=== PATIENT | female | born 1980 | race African-American/Black ===

== ENCOUNTER 2018-01-16 12:35 | Outpatient (CLI) | payer MEDICARE, MEDICAID ==
--- NOTE | 2018-01-16 14:40 | CT ---
CT ABDOMEN AND PELVIS WITH IV CONTRAST: Multiple axial tomograms are obtained through the abdomen and pelvis with IV enhancement. INDICATION: Weight loss. Epigastric pain with vomiting and diarrhea. COMPARISON: Correlation is made to a CT angio chest of 07/03/[address] Abdomen and pelvis 12/26/2009. FINDINGS: Lung bases clear. Liver, spleen, and pancreas appear unremarkable. Stomach and duodenum unremarkable. Adrenal glands normal. Kidneys unremarkable. Small bowel loops appear normal. Appendix is normal. Colon unremarkable. Images through the pelvis reveal a follicular cyst in the left ovary measuring up to 2.2 cm. Uterus unremarkable. Urinary bladder unremarkable. No adenopathy. Aorta unremarkable. IMPRESSION: No evidence of acute process. POS: [facility]
[2018-01-16] MEDS ORDERED: Iopamidol 370 76% 100 ML VIAL ONE (16:18)
== END 2018-01-16 12:36 | disposition home or self-care (01) ==
LOC: CT 12:35
PROVIDERS: ATTEND Physician Assistant Medical
DX: R63.4 Abnormal weight loss (principal); K21.9 Gastro-esophageal reflux disease without esophagitis; R10.13 Epigastric pain; K44.9 Diaphragmatic hernia without obstruction or gangrene; R13.10 Dysphagia, unspecified; R11.2 Nausea with vomiting, unspecified; R19.4 Change in bowel habit
CPT/HCPCS: 74177

== ENCOUNTER 2018-04-10 07:23 | Outpatient (CLI) | payer MEDICARE, MEDICAID ==
--- NOTE | 2018-04-10 09:37 | MRI ---
MRI LUMBAR SPINE WITHOUT CONTRAST: Date: 04/10/18 HISTORY: Lumbar radiculopathy. Low back pain with radiation down both lower extremities. There is associated n umbness and tingling x2 years. Progressive worsening. FINDINGS: Appropriate T1 marrow signal intensity of the lumbar vertebra. Lumbar spine vertebral body height is maintained. There is no fracture. No significant STIR hyperintensity to suggest vertebral body edema or ligamentous injury. Visualized solid organs have appropriate signal intensity. Symmetric signal intensity of the psoas mu scles. Conus medullaris terminates at the inferior aspect of L1. There appear to be Tarlov cysts at the left and right aspect of S2. There is some slight displacement of the exiting S2 nerve roots bilaterally. T12-L1: No significant central canal stenosis or foraminal narrowing. L1-L2: No significant central canal stenosis or foraminal narrowing. L2-L3: No significant central canal stenosis or foraminal narrowing. L3-L4: No significant central canal stenosis or foraminal narrowing. L4-L5: No significant central canal stenosis or foraminal narrowing. Mild bilateral facet hypertroph y. L5-S1: No significant central canal stenosis. Neural foramina are patent. IMPRESSION: 1. No significant central canal stenosis or foraminal narrowing. 2. Bilateral Tarlov cysts at S2. POS: [facility]
== END 2018-04-10 07:24 | disposition home or self-care (01) ==
LOC: BICMRI 07:23
PROVIDERS: ATTEND Anesthesiology
DX: M54.16 Radiculopathy, lumbar region (principal); M53.3 Sacrococcygeal disorders, not elsewhere classified
CPT/HCPCS: 72148

== ENCOUNTER 2019-03-02 10:02 | Outpatient (CLI) | payer MEDICARE, MEDICAID ==
--- NOTE | 2019-03-02 10:36 | RAD ---
EXAM: Chest 2 views: HISTORY: Dyspnea COMPARISON: 01/18/2019 FINDINGS: There is a normal-sized cardiomediastinal silhouette. Atelectasis is seen in the mid right lung. Th ere is no evidence of consolidation, mass, or pleural effusion. The bones are unremarkable. IMPRESSION: No evidence of acute cardiopulmonary disease
== END 2019-03-02 10:03 | disposition home or self-care (01) ==
LOC: RAD 10:02
PROVIDERS: ATTEND Internal Medicine
DX: R06.00 Dyspnea, unspecified (principal)
CPT/HCPCS: 71046

== ENCOUNTER 2019-12-13 10:59 | Inpatient (IN) | payer MEDICARE, MEDICAID, OTHER ==
[~2019-12-13 10:59] MED LIST: Iopamidol-370 76% 500 ML 1 ML ONE
[2019-12-13] MEDS ORDERED: Fentanyl 100 MCG/2 ML VIAL ONE ×2 (11:28→15:22)
[2019-12-13] MEDS ORDERED: Ondansetron PF 4 MG/2 ML Vial ONE (11:28)
[2019-12-13 11:58] LABS: #Basophils 0.2 thou/uL (0.0-0.2); #Eosinphils 0.8 thou/uL (0.0-0.7); #Lymphocytes 5.3 thou/uL (1.20-3.40); #Monocytes 0.8 thou/uL (0.11-0.59); #Neutrophils 6.3 thou/uL (1.40-6.50); %Basophils 1.2 % (0.0-1.0); %Eosinophils 5.7 % (0.0-10.0); %Lymphocytes 39.7 % (21.0-51.0); %Monocytes 6.1 % (0.0-10.0); %Neutrophils 47.4 % (42.0-75.0); Hemoglobin 14.6 g/dL (12.0-16.0); Mean Corpuscular Hemoglobin 29.3 pg (27.0-31.0); Mean Corpuscular Volume 88.7 fL (78.0-98.0); Mean Platelet Volume 6.9 fL (7.4-10.4); Platelet Count 292 thou/uL (130-400); RBC Distribution Width 12.4 % (11.5-14.5); Red Blood Cell (RBC) Count 4.99 mill/uL (4.20-5.40); White Blood Cell (WBC) Count 13.2 thou/uL (4.8-10.8)
[2019-12-13 12:04] LABS: Prothrombin Time 13.1 sec (12.0-14.7)
[2019-12-13 12:05] LABS: BHCG - Serum Negative (NEGATIVE); Pregs Control Background? CLEAR/WHITE (CLR/WHITE); Pregs Control Bar Appear? YES (CONTROL BAR)
[2019-12-13 12:05] LABS: PTT 31.5 sec (22.9-36.1)
[2019-12-13 12:25] LABS: ALT (SGPT) 25 U/L (8-55); AST (SGOT) 25 U/L (5-34); Albumin 3.9 g/dL (3.5-5.0); Alkaline Phosphatase 76 U/L (40-110); Anion Gap 14 mmol/L (10-20); BUN (Urea Nitrogen) 9 mg/dL (7.0-18.7); Bilirubin, Total 0.4 mg/dL (0.2-1.2); Calc. Creatinine Clearance 0 mL/min (70-130); Calcium 8.7 mg/dL (7.8-10.44); Carbon Dioxide 25 mmol/L (22-29); Chloride 101 mmol/L (98-107); Estimated GFR-MDRD Greater than 90; Globulin 3.5 g/dL (2.4-3.5); Glucose 244 mg/dL (70-105); Potassium 4.8 mmol/L (3.5-5.1); Protein, Total 7.4 g/dL (6.0-8.3); Sodium 135 mmol/L (136-145)
--- NOTE | 2019-12-13 13:03 | ULT ---
BILATERAL LOWER EXTREMITY VENOUS DUPLEX EXAM: Date: 12/13/2019 HISTORY: Bilateral leg pain and edema. History of deep venous thrombosis on right in 2017. FINDINGS: Real-time color Doppler of right and left lower extremity was performed from groin to calf. This incl udes evaluation of the common femoral, superficial and profunda femoral, saphenous, popliteal, and po sterior tibial veins. On the right side, there is occlusive thrombus in the mid to distal superficial femoral vein in the m id to distal thigh region. There is nonocclusive thrombus within the left popliteal vein. IMPRESSION: Bilateral lower extremity deep venous thrombosis. POS: [facility]
--- NOTE | 2019-12-13 13:12 | CT ---
CT PULMONARY ANGIOGRAM WITH IV CONTRAST AND 3D POSTPROCESSING: Date: 12/13/2019 HISTORY: Chest pain. Left lower leg swelling and pain. COMPARISON: 07/03/2016. FINDINGS: Inadequate opacification of the pulmonary arterial vasculature makes this a nondiagnostic exam for th e evaluation of pulmonary embolism. The thoracic aorta is well opacified with normal caliber. No evidence of aneurysm or dissection is se en. No pleural or pericardial effusions are identified. There is continued elevation of the right hem idiaphragm with adjacent atelectatic change. There are mild patchy ground-glass opacities in the lung s bilaterally. No pleural or pericardial effusions are identified. The bony structures are unremarkab le. IMPRESSION: Nondiagnostic exam for pulmonary embolism. Please see above. POS: [facility]
--- NOTE | 2019-12-13 15:45 | PDOC.FPRHP ---
- History of Present Illness Chief Complaint: b/l LE pain, swelling, redness. Cough, CP, SOB History of Present Illness: This is a 39F who presented with b/l redness, swelling, pain of the LE, as well as orthopnea, cough, SOB, CP, all of which started 2-3 days ago. She has a hx of lupus and an arrhythmia, as well as a hx of R LE DVT in 2017 for which she was on Xarelto for 2-3 months. Since then, she has been taking an 81mg ASA every day. A few days ago, both of her legs, from her knees down, become red, swollen, and extremely painful. She called the after-hours clinic number from which she was recommended to go to the ED. B/l LE doppler confirmed b/l DVTs. CTA was obtained but contrast was suboptimal so the results are non-diagnostic for PE. She states her feet felt hot but her b/l legs below the knees are cool to the touch. Her feet are edematous but without pitting edema. Her legs are extremely tender to palpation. It is difficult to farmhand erythema d/t darker skin tone but the pt states her legs are not of their usual color. Her chest is not tender to palpation but her epigastrium is. She states the pain radiates to her back. She has a smoking hx of 1-2 ppd x "several years" but quit smoking 17-18 days ago and is currently using Chantix to help with that. ED Course: Administered fentanyl x2, Zofran, Lovenox 100mg - Allergies/Adverse Reactions Allergies Allergy/AdvReac Type Severity Reaction Status Date / Time hydromorphone HCl Allergy Verified 05/07/19 16:12 [From Dilaudid] latex Allergy Verified 05/07/19 16:12 - Home Medications Medication Instructions Recorded Confirmed Type HYDROcodone Bit/APAP 10/325 [[place]] 1 tab PO Q4HR PRN 10/04/15 07/02/16 History QUEtiapine Fumarate [SEROquel] 600 mg PO HS 10/04/15 07/02/16 History Divalproex Sodium [Depakote ER] 2,000 mg PO HS 10/06/15 07/02/16 History Gabapentin [Neurontin] 600 mg PO QID 10/06/15 07/02/16 History Albuterol Sulfate [Proair HFA] 2 inhaler PO Q4HR PRN 01/18/16 07/02/16 History Aspirin [Adult Low Dose Aspirin EC] 81 mg PO DAILY 01/18/16 07/02/16 History Atorvastatin Calcium 20 mg PO DAILY 01/18/16 07/02/16 History Cyclobenzaprine [Flexeril] 5 mg PO TID 01/18/16 07/02/16 History Diclofenac Epolamine [Flector 1.3% 1 patch TOP DAILY PRN 01/18/16 07/02/16 History Patch] Omeprazole 40 mg PO DAILY 01/18/16 07/02/16 History SUMAtriptan Succinate [Imitrex] 25 mg PO Q2HR PRN 01/18/16 07/02/16 History metFORMIN [Glucophage] 500 mg PO DAILY 01/18/16 07/02/16 History Insulin Detemir 100 UNITS/ML 80 unit SQ QPM 07/02/16 07/02/16 History [Levemir] Insulin Detemir 100 UNITS/ML 80 units SC QA- 07/02/16 07/02/16 History [Levemir] Benzonatate [Tessalon] 100 mg PO Q4H PRN #30 cap 07/03/16 Rx Ibuprofen 600 mg PO Q8HR PRN #21 tablet 07/03/16 Rx Rivaroxaban [Xarelto Starter Pack] 15 mg PO BID 07/03/16 07/03/16 History Rivaroxaban [Xarelto] 20 mg PO DAILY 07/03/16 07/03/16 History - History PMHx: Lupus, hx of L LE DVT, HTN, HLD, IDDM2, arrhythmia, migraines, chronic back pain, RA, fibromyalgia, anx/dep PSHx: hernia repair FHx: significant fhx of CAD Social: No EtOH/drugs. Smoked 1-2ppd x "many years", actively quitting with Chantix x18 days - Review of Systems General: reports: fatigue. denies: fever/chills Eyes: denies: vision changes Respiratory: reports: shortness of breath. denies: cough Cardiovascular: reports: chest pain, palpitation, edema, orthopnea Gastrointestinal: denies: nausea, vomiting, diarrhea Genitourinary: denies: dysuria, polyuria Skin: denies: rashes, itching Musculoskeletal: reports: pain, tenderness, stiffness, swelling Neurological: reports: numbness (in toes b/l). denies: syncope, seizure Psychological: reports: anxiety, depression - Vital signs BP: 140/66 HR: 100 RR: 20 Tmax: 98.1F Pox: 95-98% on RA Wt: 98kg - Physical Exam Constitutional: NAD, awake, alert and oriented, well developed (obese) HEENT: normocephalic and atraumatic, EOMI, grossly normal vision, grossly normal hearing Neck: supple, FROM Chest: no-tender to palpation, no lesions Heart: RRR, normal S1/S2, no murmurs/rubs/gallops, pulses present (1+ b/l radial and dp) Lungs: CTAB (Decreased breath sounds in lower L lung), no respiratory distress, good air movement, no rales/rhonchi, no wheezing Abdomen: soft, bowel sounds present -Abdomen: Tender to palpation in epigastric region Musculoskeletal: normal structure, normal tone, ROM grossly normal Neurological: no focal deficit Skin: no rash/lesions -Skin: B/l legs, below the knees, cold to the touch Psychiatric: normal mood and affect, good judgment and insight, intact recent and remote memory FMR H&P: Results - Labs Result Diagrams: 12/13/19 11:35 12/13/19 11:35 Lab results: WBC 13.2 thou/uL (4.8-10.8) H 12/13/19 11:35 Hgb 14.6 g/dL (12.0-16.0) 12/13/19 11:35 Hct 44.2 % (36.0-47.0) 12/13/19 11:35 MCV 88.7 fL (78.0-98.0) 12/13/19 11:35 Plt Count 292 thou/uL (130-400) 12/13/19 11:35 Neutrophils % 47.4 % (42.0-75.0) 12/13/19 11:35 Sodium 135 mmol/L (136-145) L 12/13/19 11:35 Potassium 4.8 mmol/L (3.5-5.1) 12/13/19 11:35 Chloride 101 mmol/L (98-107) 12/13/19 11:35 Carbon Dioxide 25 mmol/L (22-29) 12/13/19 11:35 BUN 9 mg/dL (7.0-18.7) 12/13/19 11:35 Creatinine 0.81 mg/dL (0.6-1.1) 12/13/19 11:35 Glucose 244 mg/dL (70-105) H 12/13/19 11:35 Calcium 8.7 mg/dL (7.8-10.44) 12/13/19 11:35 Total Bilirubin 0.4 mg/dL (0.2-1.2) 12/13/19 11:35 AST 25 U/L (5-34) 12/13/19 11:35 ALT 25 U/L (8-55) 12/13/19 11:35 Alkaline Phosphatase 76 U/L (40-110) 12/13/19 11:35 B-Natriuretic Peptide 44.0 pg/mL (0-100) 12/13/19 11:35 Serum Total Protein 7.4 g/dL (6.0-8.3) 12/13/19 11:35 Albumin 3.9 g/dL (3.5-5.0) 12/13/19 11:35 FMR H&P: A/P - Plan This is a 39F who presented to the ED for concerns for b/l DVT given her hx of lupus and of prior DVT. B/l LE DVT - Hx of R LE DVT in 2017, s/p Xarelto - Confirmed on LE doppler U/S - Given one dose of Teena in ED - Start Eliquis - Echo ordered Likely PE - CTA with suboptimal contrast therefore non-diagnostic for PE - CP, SOB, orthopnea - Monitor on tele - Not requiring O2, monitor oxygenation status and resp effort - Management same as above Lupus - PMH - Suspected cause of DVTs - MD aware Arrhythmia - Unknown type - Monitor on tele - Continue home meds IDDM2 - ACHS checks - SSI - Hypoglycemia protocol - Restart home insulin HTN - Chronic, POA - MD aware - Continue home meds Chronic conditions - MD aware, continue home meds Migraines Chronic back pain RA Fibromyalgia Diet: CC 1999kc DVT Ppx: Eliquis PCP: CHRISTINE Hewitt Code: Full Dispo: Tele obs, will likely discharge tomorrow FMR H&P: Upper Level - Plan Date/Time: 12/13/19 3421 Ms Mcgowan is a 40yo female with pmh of RA, IDDM, hx of DVTs in 2017 presents with bilateral leg pain, swelling and dyspnea at rest. Reports symptoms started a couple days ago. Today she developed substernal chest pain, worse with pushing on it. Was on Xarelto for 2-3 months and has been taking a baby aspirin. General: NAD CV: RRR, no murmurs. Chest pain reproducible on palpation. Pulm: CTA b/l. In mild distress. Extremities: No edema A/P: Bilateral DVTs and likely PE -US with b/l LE DVTs. CTA with inadequate opacification therefore nondiagnostic. Symptoms consistent with PE. EKG wnl. s/p Therapeutic lovenox in ED, will transition over to DOAC. Not requiring O2. Echo ordered to eval for right heart strain. Morphine PRN for pain. Admit to tele. I, Maryjane Corcoran, have evaluated this patient and agree with findings/plan as outlined by communications marketing intern resident. Pertinent changes/additions are listed here. Addendum - Attending - Attending Attestation Date/Time: 12/13/19 2958 I personally evaluated the patient and discussed the management with Dr. Alejandra Ruiz/Nilo. I agree with the History, Examination, Assessment and Plan documented above with any addition or exceptions noted below. Patient with history of autoimmune disorders as well as history of DVT here with lower extremity swelling, shortness of breath, and chest pain. LE U/S c/w DVT, CTA nondiagnostic for PE. Patient with borderline tachycardia, she does have normal O2 sats. Exam is overall benign except with lower extremity. Patient will be admitted for DVT and suspected PE. Start Lovenox with transition to OAC. TTE will be needed to assess RV function given the symptoms concerning for heart failure. Further mgmt pending clinical course.
[2019-12-13 15:52] LABS: Troponin I Less than 0.010 ng/mL (< 0.028)
[2019-12-13] MEDS ORDERED: Enoxaparin Sodium 100 MG/ML SYRINGE ONE (16:22)
[2019-12-13] MEDS ORDERED: Ondansetron ODT 4 MG TAB PO PRN (18:19)
[2019-12-13] MEDS ORDERED: HumaLOG 300 UNITS/3 ML VIAL SC PRN (18:19)
[2019-12-13] MEDS ORDERED: Ondansetron PF 4 MG/2 ML Vial IVP PRN (18:19)
[2019-12-13] MEDS ORDERED: Dextrose 50% Abboject 50 ML SYRINGE SLOW IVP PRN (18:19)
[2019-12-13] MEDS ORDERED: Calcium Carbonate 500 MG ChewTAB PO PRN (18:19)
[2019-12-13] MEDS ORDERED: Dextrose 5% in Water 1,000 ML IV PRN (18:19)
[2019-12-13 18:36] VITALS: BMI 34.3
[2019-12-13 18:46] LABS: Troponin I Less than 0.010 ng/mL (< 0.028)
[2019-12-13] MEDS: Apixaban 5 MG TAB PO SCH (21:30)
[2019-12-13] MEDS: Fentanyl 100 MCG/2 ML VIAL SLOW IVP SCH (21:31)
[2019-12-13] MEDS ORDERED: Ibuprofen 600 MG TAB PO PRN (22:48)
[2019-12-13] MEDS ORDERED: tiZANidine HCl 4 MG TAB PO PRN (22:57)
[2019-12-13] MEDS ORDERED: Albuterol 200 PUFF (6.7GM INHALER) INH PRN (22:58)
[2019-12-13] MEDS ORDERED: ERENUMAB AOOE 70 MG/ML IM SCH (23:15)
[2019-12-13] MEDS ORDERED: AUTO INJCT IM SCH (23:15)
[2019-12-14] MEDS ORDERED: clonazePAM 1 MG TAB PO SCH (01:15)
[2019-12-14] MEDS ORDERED: OLANZapine 5 MG TAB PO SCH (01:15)
[2019-12-14] MEDS ORDERED: Prazosin HCl 1 MG CAP PO SCH (01:15)
[2019-12-14] MEDS ORDERED: Gabapentin 300 MG CAP PO SCH (01:15)
[2019-12-14] MEDS: Fentanyl 100 MCG/2 ML VIAL SLOW IVP SCH ×6 (01:25→20:57)
[2019-12-14] MEDS: Nicotine 14 MG PATCH TD SCH ×2 (01:28→20:52)
[2019-12-14 05:11] LABS: #Basophils 0.1 thou/uL (0.0-0.2); #Eosinphils 0.7 thou/uL (0.0-0.7); #Lymphocytes 5.1 thou/uL (1.20-3.40); #Monocytes 0.8 thou/uL (0.11-0.59); #Neutrophils 3.9 thou/uL (1.40-6.50); %Eosinophils 6.9 % (0.0-10.0); %Lymphocytes 47.7 % (21.0-51.0); %Monocytes 7.8 % (0.0-10.0); %Neutrophils 36.6 % (42.0-75.0); Hemoglobin 14.2 g/dL (12.0-16.0); Mean Corpuscular HGB CONC 32.1 g/dL (32.0-36.0); Mean Corpuscular Hemoglobin 28.7 pg (27.0-31.0); Mean Corpuscular Volume 89.4 fL (78.0-98.0); Platelet Count 302 thou/uL (130-400); RBC Distribution Width 12.5 % (11.5-14.5); Red Blood Cell (RBC) Count 4.95 mill/uL (4.20-5.40); White Blood Cell (WBC) Count 10.6 thou/uL (4.8-10.8)
[2019-12-14 05:35] LABS: Anion Gap 15 mmol/L (10-20); BUN (Urea Nitrogen) 7 mg/dL (7.0-18.7); Calc. Creatinine Clearance 142 mL/min (70-130); Calcium 8.9 mg/dL (7.8-10.44); Carbon Dioxide 24 mmol/L (22-29); Chloride 103 mmol/L (98-107); Estimated GFR-MDRD Greater than 90; Glucose 169 mg/dL (70-105); Sodium 138 mmol/L (136-145)
--- NOTE | 2019-12-14 07:25 | PDOC.FM ---
- Subjective Subjective: Pt is a 39 yo female here for bilateral DVT's and likely PE. She has continued pleuritic chest pain. Her lower extremities are causing pain. She has not had a syncopal episode. - Objective Vital Signs & Weight: Vital Signs (12 hours) Temp Pulse Resp BP Pulse Ox 12/14/19 04:00 98.2 F 111 H 20 117/57 L 92 L 12/13/19 19:58 98.2 F 94 20 128/59 L 95 Weight Weight 96.479 kg I&O: 12/13/19 12/14/19 12/15/19 06:59 06:59 06:59 Intake Total 750 Output Total 1100 Balance -350 Result Diagrams: 12/14/19 04:36 12/14/19 04:36 EKG Reviewed by me: Yes (NSR) Phys Exam - Physical Examination Constitutional: NAD HEENT: PERRLA, oral pharynx no lesions Neck: no JVD, full ROM Respiratory: no wheezing, clear to auscultation bilateral Cardiovascular: RRR, no significant murmur Gastrointestinal: soft, non-tender 1+ edema, pulses present, positive neda sign Neurological: non-focal, moves all 4 limbs Psychiatric: normal affect Skin: no rash, cap refill <2 seconds Dx/Plan - Plan Plan: This is a 39F who presented to the ED for concerns for b/l DVT given her hx of lupus and of prior DVT. B/l LE DVT - Hx of R LE DVT in 2017, s/p Xarelto - Confirmed on LE doppler U/S - Given one dose of Teena in ED - Start Eliquis; CM consulted for home affordability - Pt will likely need chronic anti-coag - Prior anti-cardiolipin studies negative Likely PE - CTA with suboptimal contrast therefore non-diagnostic for PE - pending echo - walking trial for possible home oxygen Lupus - PMH - Suspected cause of DVTs - MD aware Arrhythmia - Unknown type - Monitor on tele - Continue home meds IDDM2 - ACHS checks - SSI - Hypoglycemia protocol - Restart home insulin HTN - Chronic, POA - MD aware - Continue home meds Chronic conditions - MD aware, continue home meds Migraines Chronic back pain RA Fibromyalgia Diet: CC 2000kcal DVT Ppx: Eliquis PCP: CHRISTINE Hewitt Code: Full Dispo: Tele obs, will likely discharge today depending on walking trial Addendum - Attending - Attending Attestation Date/Time: 12/14/19 3448 I personally evaluated the patient and discussed the management with Dr. Jiang. I agree with the History, Examination, Assessment and Plan documented above with any addition or exceptions noted below.
[2019-12-14] MEDS: clonazePAM 1 MG TAB PO SCH ×2 (08:24→20:51)
[2019-12-14] MEDS: Amlodipine 10 MG TAB PO SCH (08:24)
[2019-12-14] MEDS: Gabapentin 300 MG CAP PO SCH ×3 (08:24→20:50)
[2019-12-14] MEDS: Atorvastatin Calcium 20 MG TAB PO SCH (08:24)
[2019-12-14] MEDS: Aspirin 81 mg Enteric Coated Tablet PO SCH (08:25)
[2019-12-14] MEDS: Venlafaxine HCl XR 150 MG CAP PO SCH (08:25)
[2019-12-14] MEDS: Apixaban 5 MG TAB PO SCH ×2 (08:25→20:51)
[2019-12-14] MEDS ORDERED: Non-Formulary Item 1 EACH (Insulin Detemir 100 Units/Ml [Levemir] 100 UNITS/ML Vial) SQ SCH (09:00)
[2019-12-14] MEDS ORDERED: DICLOFENAC EPOLAMINE TOP SCH (09:00)
[2019-12-14] MEDS ORDERED: VARENICLINE TARTRATE PO SCH (09:00)
[2019-12-14] MEDS ORDERED: Lidocaine 5% Patch TD SCH (09:00)
[2019-12-14] MEDS: SUMAtriptan Succinate 25 MG TAB PO PRN ×2 (11:04→17:16)
[2019-12-14] MEDS: Fluticasone Propionate Nasal Spray 16 gm Bottle FS SCH (11:05)
[2019-12-14] MEDS: Ipratropium Bromide 0.06% Nasal Inhaler 15ml EA NARE SCH ×2 (11:05→20:56)
[2019-12-14 11:08] LABS: SARS-CoV-2 MS2 Positive; SARS-CoV-2 N Gene Negative; SARS-CoV-2 S Gene Negative; SARS-CoV-2 by NAA Not Detected (NotDetected); SARS-CoV-2 orf1ab Negative
[2019-12-14] MEDS: HumaLOG 300 UNITS/3 ML VIAL SC PRN (11:30)
[2019-12-14] MEDS: Prazosin HCl 1 MG CAP PO SCH (20:51)
[2019-12-14] MEDS: OLANZapine 5 MG TAB PO SCH (20:51)
[2019-12-14] MEDS ORDERED: INSULIN GLARGINE SC SCH (21:00)
[2019-12-14] MEDS ORDERED: PRE FILLED SC SCH (21:00)
[2019-12-14] MEDS: Lidocaine Patch Removal 1 EACH TOP SCH (22:12)
[2019-12-15] MEDS: Fentanyl 100 MCG/2 ML VIAL SLOW IVP SCH ×2 (02:40→05:29)
--- NOTE | 2019-12-15 06:32 | PDOC.FM ---
- Subjective Subjective: Pt is doing well today. She has no complaints. Her chest pain is improving. She is ambulating well but desats. She is now on 2 L at rest as well. - Objective Vital Signs & Weight: Vital Signs (12 hours) Temp Pulse Resp BP Pulse Ox 12/15/19 05:24 98.6 F 86 14 117/58 L 94 L 12/15/19 01:11 98.5 F 84 16 104/51 L 96 12/14/19 20:16 97 12/14/19 19:20 97.8 F 87 20 121/56 L 97 Weight Weight 96.479 kg I&O: 12/13/19 12/14/19 12/15/19 06:59 06:59 06:59 Intake Total 750 Output Total 1100 Balance -350 Result Diagrams: 12/15/19 07:00 12/15/19 07:00 Phys Exam - Physical Examination Constitutional: NAD HEENT: PERRLA, moist MMs Respiratory: no wheezing, clear to auscultation bilateral Cardiovascular: RRR, no significant murmur Gastrointestinal: soft, positive bowel sounds Musculoskeletal: pulses present positive homans sign Neurological: non-focal, moves all 4 limbs Psychiatric: normal affect, A&O x 3 Skin: no rash, cap refill <2 seconds Dx/Plan - Plan Plan: This is a 39F who presented to the ED for concerns for b/l DVT given her hx of lupus and of prior DVT. B/l LE DVT - Hx of R LE DVT in 2017, s/p Xarelto - Confirmed on LE doppler U/S - Start Eliquis; CM consulted for home affordability - Pt will likely need chronic anti-coag - Prior anti-cardiolipin studies negative Likely PE - CTA with suboptimal contrast therefore non-diagnostic for PE - pending echo for right heart strain, pressures - pt is requiring 2 L of oxygen at rest and desats with ambulation - pending home oxygen Lupus - PMH - Suspected cause of DVTs - aware - d/c ibuprofen in setting of anticoag Arrhythmia - Unknown type - Monitor on tele - Continue home meds IDDM2 - ACHS checks - SSI - Hypoglycemia protocol - Restart home insulin HTN - Chronic, POA - aware - Continue home meds Chronic conditions - aware, continue home meds Migraines Chronic back pain RA Fibromyalgia Diet: CC 1999[facility] DVT Ppx: Eliquis PCP: CHRISTINE Hewitt Code: Full Dispo: Tele inpt, pending home oxygen and echocardiogram Addendum - Attending - Attending Attestation Date/Time: 12/15/19 9474 I personally evaluated the patient and discussed the management with Dr. Jiang. I agree with the History, Examination, Assessment and Plan documented above with any addition or exceptions noted below.
[2019-12-15 07:19] LABS: #Basophils 0.1 thou/uL (0.0-0.2); #Eosinphils 0.6 thou/uL (0.0-0.7); #Monocytes 0.8 thou/uL (0.11-0.59); %Eosinophils 5.7 % (0.0-10.0); %Lymphocytes 38.3 % (21.0-51.0); %Monocytes 7.5 % (0.0-10.0); %Neutrophils 47.6 % (42.0-75.0); Hemoglobin 14.8 g/dL (12.0-16.0); Mean Corpuscular HGB CONC 33.1 g/dL (32.0-36.0); Mean Corpuscular Hemoglobin 29.6 pg (27.0-31.0); Mean Corpuscular Volume 89.6 fL (78.0-98.0); Mean Platelet Volume 6.7 fL (7.4-10.4); Platelet Count 290 thou/uL (130-400); RBC Distribution Width 12.5 % (11.5-14.5); Red Blood Cell (RBC) Count 4.99 mill/uL (4.20-5.40); White Blood Cell (WBC) Count 10.5 thou/uL (4.8-10.8)
[2019-12-15 07:33] LABS: Anion Gap 10 mmol/L (10-20); BUN (Urea Nitrogen) 11 mg/dL (7.0-18.7); Calc. Creatinine Clearance 142 mL/min (70-130); Calcium 9.4 mg/dL (7.8-10.44); Carbon Dioxide 29 mmol/L (22-29); Chloride 102 mmol/L (98-107); Estimated GFR-MDRD Greater than 90; Glucose 163 mg/dL (70-105); Potassium 4.3 mmol/L (3.5-5.1); Sodium 137 mmol/L (136-145)
[2019-12-15] MEDS: Gabapentin 300 MG CAP PO SCH ×3 (08:11→21:39)
[2019-12-15] MEDS: Aspirin 81 mg Enteric Coated Tablet PO SCH (08:12)
[2019-12-15] MEDS: Venlafaxine HCl XR 150 MG CAP PO SCH (08:12)
[2019-12-15] MEDS: Atorvastatin Calcium 20 MG TAB PO SCH (08:12)
[2019-12-15] MEDS: Amlodipine 10 MG TAB PO SCH (08:12)
[2019-12-15] MEDS: clonazePAM 1 MG TAB PO SCH ×2 (08:12→21:40)
[2019-12-15] MEDS: Lidocaine 5% Patch TD SCH (08:13)
[2019-12-15] MEDS: Apixaban 5 MG TAB PO SCH ×2 (08:13→21:38)
[2019-12-15] MEDS: Ipratropium Bromide 0.06% Nasal Inhaler 15ml EA NARE SCH ×2 (08:13→21:41)
[2019-12-15] MEDS: Fluticasone Propionate Nasal Spray 16 gm Bottle FS SCH (08:14)
[2019-12-15] MEDS: Polyethylene Glycol 3350 17 GM Packet PO PRN (08:18)
[2019-12-15] MEDS: HYDROcodone/Acetaminophen 10/325 mg Tablet PO PRN ×3 (08:18→21:38)
[2019-12-15] MEDS: INSULIN GLARGINE SC SCH ×3 (08:30→21:53)
[2019-12-15] MEDS: PRE FILLED SC SCH ×3 (08:30→21:53)
[2019-12-15] MEDS ORDERED: Insulin Glargine 20 UNITS in Pre-Filled Syringe 1 EACH SC SCH (11:45)
[2019-12-15] MEDS: HumaLOG 300 UNITS/3 ML VIAL SC PRN ×2 (13:04→17:12)
[2019-12-15] MEDS: Senokot S 8.6-50 MG TAB PO PRN (21:37)
[2019-12-15] MEDS: OLANZapine 5 MG TAB PO SCH (21:38)
[2019-12-15] MEDS: Prazosin HCl 1 MG CAP PO SCH (21:40)
[2019-12-15] MEDS: Nicotine 14 MG PATCH TD SCH (21:42)
[2019-12-15] MEDS: Lidocaine Patch Removal 1 EACH TOP SCH (21:42)
[2019-12-16 05:01] LABS: #Basophils 0.1 thou/uL (0.0-0.2); #Eosinphils 0.9 thou/uL (0.0-0.7); #Lymphocytes 4.9 thou/uL (1.20-3.40); #Neutrophils 3.8 thou/uL (1.40-6.50); %Basophils 1.2 % (0.0-1.0); %Lymphocytes 45.9 % (21.0-51.0); %Neutrophils 35.9 % (42.0-75.0); Hemoglobin 14.9 g/dL (12.0-16.0); Mean Corpuscular HGB CONC 33.5 g/dL (32.0-36.0); Mean Corpuscular Hemoglobin 29.9 pg (27.0-31.0); Mean Corpuscular Volume 89.2 fL (78.0-98.0); Mean Platelet Volume 6.9 fL (7.4-10.4); Platelet Count 290 thou/uL (130-400); RBC Distribution Width 12.3 % (11.5-14.5); Red Blood Cell (RBC) Count 4.98 mill/uL (4.20-5.40); White Blood Cell (WBC) Count 10.6 thou/uL (4.8-10.8)
[2019-12-16 05:28] LABS: Anion Gap 12 mmol/L (10-20); BUN (Urea Nitrogen) 13 mg/dL (7.0-18.7); Calc. Creatinine Clearance 144 mL/min (70-130); Calcium 9.3 mg/dL (7.8-10.44); Carbon Dioxide 28 mmol/L (22-29); Chloride 102 mmol/L (98-107); Estimated GFR-MDRD Greater than 90; Glucose 108 mg/dL (70-105); Potassium 4.2 mmol/L (3.5-5.1); Sodium 138 mmol/L (136-145)
[2019-12-16] MEDS: HYDROcodone/Acetaminophen 10/325 mg Tablet PO PRN ×4 (05:41→18:41)
--- NOTE | 2019-12-16 07:51 | PDOC.FM ---
- Subjective Subjective: Pt is doing well today. She has no complaints. Pain is fairly well controlled. She is taking her home norco. Scheduled tylenol as well. She asked about paying for home oxygen since she was denied. Case management says this is a possibility. - Objective Vital Signs & Weight: Vital Signs (12 hours) Temp Pulse Resp BP BP Pulse Ox 12/16/19 05:37 97.8 F 73 18 101/55 L 93 L 12/16/19 00:58 98 F 67 20 117/56 L 99 12/15/19 21:39 97.9 F 84 24 H 128/64 93 L Weight Weight 96.479 kg Result Diagrams: 12/16/19 04:07 12/16/19 04:07 Phys Exam - Physical Examination Constitutional: NAD HEENT: PERRLA, moist MMs Respiratory: no wheezing, clear to auscultation bilateral Cardiovascular: RRR, no significant murmur Gastrointestinal: soft, non-tender Musculoskeletal: no edema, pulses present Dx/Plan - Plan Plan: This is a 39F who presented to the ED for concerns for b/l DVT given her hx of lupus and of prior DVT. B/l LE DVT PE - Hx of R LE DVT in 2017, s/p Xarelto - Confirmed on LE doppler U/S - Echo did not show significant R heart abnormalities - Start Eliquis; covered by insurance - Pt is opting to pay for home oxygen. WIll discuss with CM. - Pt will likely need chronic anti-coag - Prior anti-cardiolipin studies negative Lupus - PMH - Suspected cause of DVTs - MD aware - d/c ibuprofen in setting of anticoag Arrhythmia - Unknown type - Monitor on tele - Continue home meds IDDM2 - ACHS checks - SSI - Hypoglycemia protocol - Restart home insulin HTN - Chronic, POA - aware - Continue home meds Chronic conditions - MD aware, continue home meds Migraines Chronic back pain RA Fibromyalgia Diet: CC 2000kcal DVT Ppx: Eliquis PCP: CHRISTINE Hewitt Code: Full Dispo:discharge once oxygen is approved and set up Addendum - Attending - Attending Attestation Date/Time: 12/16/19 1141 I personally evaluated the patient and discussed the management with Dr. Jiang. I agree with the History, Examination, Assessment and Plan documented above with any addition or exceptions noted below.
[2019-12-16] MEDS: Senokot S 8.6-50 MG TAB PO PRN (08:13)
[2019-12-16] MEDS: Polyethylene Glycol 3350 17 GM Packet PO PRN (08:13)
[2019-12-16] MEDS: INSULIN GLARGINE SC SCH ×3 (08:14→22:40)
[2019-12-16] MEDS: PRE FILLED SC SCH ×3 (08:14→22:40)
[2019-12-16] MEDS: Aspirin 81 mg Enteric Coated Tablet PO SCH (08:16)
[2019-12-16] MEDS: Venlafaxine HCl XR 150 MG CAP PO SCH (08:16)
[2019-12-16] MEDS: Lidocaine 5% Patch TD SCH (08:16)
[2019-12-16] MEDS: Gabapentin 300 MG CAP PO SCH ×3 (08:16→22:39)
[2019-12-16] MEDS: Apixaban 5 MG TAB PO SCH ×2 (08:17→22:39)
[2019-12-16] MEDS: Atorvastatin Calcium 20 MG TAB PO SCH (08:17)
[2019-12-16] MEDS: Amlodipine 10 MG TAB PO SCH (08:17)
[2019-12-16] MEDS: clonazePAM 1 MG TAB PO SCH ×2 (08:17→22:39)
[2019-12-16] MEDS: Ipratropium Bromide 0.06% Nasal Inhaler 15ml EA NARE SCH ×2 (08:18→23:07)
[2019-12-16] MEDS: Fluticasone Propionate Nasal Spray 16 gm Bottle FS SCH (08:18)
[2019-12-16] MEDS: Acetaminophen 325 MG TAB PO SCH ×3 (08:36→22:38)
[2019-12-16] MEDS: Nicotine 14 MG PATCH TD SCH ×2 (08:40→08:41)
[2019-12-16] MEDS: HumaLOG 300 UNITS/3 ML VIAL SC PRN (12:44)
[2019-12-16] MEDS: OLANZapine 5 MG TAB PO SCH (22:39)
[2019-12-16] MEDS: Lidocaine Patch Removal 1 EACH TOP SCH (22:41)
[2019-12-16] MEDS: Prazosin HCl 1 MG CAP PO SCH (23:16)
[2019-12-17] MEDS: Acetaminophen 325 MG TAB PO SCH ×4 (03:09→20:35)
[2019-12-17 04:41] LABS: #Basophils 0.1 thou/uL (0.0-0.2); #Eosinphils 0.8 thou/uL (0.0-0.7); #Lymphocytes 4.8 thou/uL (1.20-3.40); #Monocytes 0.9 thou/uL (0.11-0.59); #Neutrophils 3.7 thou/uL (1.40-6.50); %Basophils 1.3 % (0.0-1.0); %Eosinophils 7.6 % (0.0-10.0); %Lymphocytes 46.2 % (21.0-51.0); %Monocytes 8.6 % (0.0-10.0); %Neutrophils 36.3 % (42.0-75.0); Hemoglobin 14.6 g/dL (12.0-16.0); Mean Corpuscular HGB CONC 32.7 g/dL (32.0-36.0); Mean Corpuscular Hemoglobin 29.2 pg (27.0-31.0); Mean Corpuscular Volume 89.2 fL (78.0-98.0); Mean Platelet Volume 6.7 fL (7.4-10.4); Platelet Count 295 thou/uL (130-400); RBC Distribution Width 12.3 % (11.5-14.5); Red Blood Cell (RBC) Count 4.98 mill/uL (4.20-5.40); White Blood Cell (WBC) Count 10.3 thou/uL (4.8-10.8)
[2019-12-17 05:00] LABS: Anion Gap 11 mmol/L (10-20); BUN (Urea Nitrogen) 15 mg/dL (7.0-18.7); Calc. Creatinine Clearance 141 mL/min (70-130); Calcium 8.8 mg/dL (7.8-10.44); Carbon Dioxide 25 mmol/L (22-29); Chloride 102 mmol/L (98-107); Estimated GFR-MDRD Greater than 90; Glucose 132 mg/dL (70-105); Potassium 4.1 mmol/L (3.5-5.1); Sodium 134 mmol/L (136-145)
--- NOTE | 2019-12-17 06:55 | PDOC.FM ---
- Subjective Subjective: Pt is doing well today. She has no complaints. Her respiratory status is unchanged. Today, she would like to go for placement instead of home and paying for oxygen. She has not had a BM and would like an enema. - Objective Vital Signs & Weight: Vital Signs (12 hours) Temp Pulse Resp BP BP Pulse Ox 12/17/19 04:00 98.0 F 87 14 102/52 L 96 12/17/19 00:35 77 16 109/56 L 12/16/19 22:00 96 Weight Weight 96.479 kg Result Diagrams: 12/17/19 04:11 12/17/19 04:11 Phys Exam - Physical Examination Constitutional: NAD HEENT: PERRLA, moist MMs Respiratory: no wheezing, clear to auscultation bilateral Cardiovascular: RRR, no significant murmur Gastrointestinal: soft, positive bowel sounds Musculoskeletal: no edema, pulses present Neurological: non-focal, moves all 4 limbs Psychiatric: normal affect, A&O x 3 Dx/Plan - Plan Plan: This is a 39F who presented to the ED for concerns for b/l DVT given her hx of lupus and of prior DVT. B/l LE DVT PE - Hx of R LE DVT in 2017, s/p Xarelto - Confirmed on LE doppler U/S - Echo did not show significant R heart abnormalities - Start Eliquis; covered by insurance - Pt will likely need chronic anti-coag - Prior anti-cardiolipin studies negative - Pending placement as pt prefers this vs home oxygen (pt would pay for home oxygen - cost $160-$200 per month) - discuss smoking cessation Lupus - PMH - Suspected cause of DVTs - MD aware - d/c ibuprofen in setting of anticoag Arrhythmia - Unknown type - Monitor on tele - Continue home meds IDDM2 - ACHS checks - SSI - Hypoglycemia protocol - Restart home insulin HTN - Chronic, POA - aware - Continue home meds Chronic conditions - aware, continue home meds Migraines Chronic back pain RA Fibromyalgia Diet: CC 2000kc DVT Ppx: Eliquis PCP: CHRISTINE Hewitt Code: Full Dispo: pending placement Addendum - Attending - Attending Attestation Date/Time: 12/17/19 1230 I personally evaluated the patient and discussed the management with Dr. Jiang. I agree with the History, Examination, Assessment and Plan documented above with any addition or exceptions noted below. Patient stable from her hypoxia from PE and DVT. Continue OAC. We are awaiting swing bed/ SNU placement.
[2019-12-17] MEDS: HYDROcodone/Acetaminophen 10/325 mg Tablet PO PRN ×2 (07:44→17:12)
[2019-12-17] MEDS: Fluticasone Propionate Nasal Spray 16 gm Bottle FS SCH (08:36)
[2019-12-17] MEDS: Ipratropium Bromide 0.06% Nasal Inhaler 15ml EA NARE SCH (08:38)
[2019-12-17] MEDS: INSULIN GLARGINE SC SCH ×2 (08:39→08:43)
[2019-12-17] MEDS: PRE FILLED SC SCH ×2 (08:39→08:43)
[2019-12-17] MEDS: Amlodipine 10 MG TAB PO SCH (08:41)
[2019-12-17] MEDS: Aspirin 81 mg Enteric Coated Tablet PO SCH (08:42)
[2019-12-17] MEDS: Atorvastatin Calcium 20 MG TAB PO SCH (08:42)
[2019-12-17] MEDS: Apixaban 5 MG TAB PO SCH (08:42)
[2019-12-17] MEDS: Gabapentin 300 MG CAP PO SCH ×2 (08:43→14:22)
[2019-12-17] MEDS: clonazePAM 1 MG TAB PO SCH (08:43)
[2019-12-17] MEDS: Lidocaine 5% Patch TD SCH (08:43)
[2019-12-17] MEDS: Nicotine 14 MG PATCH TD SCH (08:44)
[2019-12-17] MEDS: Venlafaxine HCl XR 150 MG CAP PO SCH (08:44)
[2019-12-17] MEDS: HumaLOG 300 UNITS/3 ML VIAL SC PRN ×2 (11:43→17:19)
[2019-12-17 21:18] VITALS: BP 116/59; TEMP 98.8
== END 2019-12-17 21:05 | DRG 299 ==
LOC: ERS 10:59 → 2SW 15:37 → OBSVTOIN 12-14 17:37 → 2NO 12-16 16:49
PROVIDERS: ADMIT Student in an Organized Health Care Education/Training Program; ATTEND Student in an Organized Health Care Education/Training Program
DX: I82.403 Acute embolism and thrombosis of unspecified deep veins of lower extremity, bilateral (principal); I26.99 Other pulmonary embolism without acute cor pulmonale; E78.00 Pure hypercholesterolemia, unspecified; E11.9 Type 2 diabetes mellitus without complications; I10 Essential (primary) hypertension; M06.9 Rheumatoid arthritis, unspecified; G43.909 Migraine, unspecified, not intractable, without status migrainosus; F41.9 Anxiety disorder, unspecified; E78.5 Hyperlipidemia, unspecified; G89.29 Other chronic pain; M54.9 Dorsalgia, unspecified; E66.9 Obesity, unspecified; I49.9 Cardiac arrhythmia, unspecified; F32.9 Major depressive disorder, single episode, unspecified; M79.7 Fibromyalgia; Z91.040 Latex allergy status; Z87.891 Personal history of nicotine dependence; Z79.82 Long term (current) use of aspirin; Z79.899 Other long term (current) drug therapy; Z79.51 Long term (current) use of inhaled steroids; Z79.4 Long term (current) use of insulin; Z68.34 Body mass index [BMI] 34.0-34.9, adult; R09.02 Hypoxemia; Z20.828 Contact with and (suspected) exposure to other viral communicable diseases
CPT/HCPCS: 36415; 36416; 71275; 80048; 80053; 83880; 84484; 84703; 85025; 85610; 85730; 87635; 93005; 93306; 93970; 96372; 96374; 96375; 96376; J1650; J1815; J2405; J3010; Q9967; U0003

== ENCOUNTER 2020-01-02 18:32 | Emergency (ER) | payer MEDICARE, OTHER ==
[2020-01-02 21:34] LABS: Hemoglobin 14.5 g/dL (12.0-16.0); Mean Corpuscular HGB CONC 33.2 g/dL (32.0-36.0); Mean Corpuscular Volume 87.1 fL (78.0-98.0); Mean Platelet Volume 6.5 fL (7.4-10.4); Platelet Count 349 thou/uL (130-400); White Blood Cell (WBC) Count 19.1 thou/uL (4.8-10.8)
[2020-01-02 21:45] LABS: BHCG - Serum Negative (NEGATIVE); Pregs Control Background? CLEAR/WHITE (CLR/WHITE); Pregs Control Bar Appear? YES (CONTROL BAR)
[2020-01-02 21:52] LABS: ALT (SGPT) 30 U/L (8-55); AST (SGOT) 20 U/L (5-34); Albumin 4.2 g/dL (3.5-5.0); Alkaline Phosphatase 80 U/L (40-110); Anion Gap 14 mmol/L (10-20); BUN (Urea Nitrogen) 18 mg/dL (7.0-18.7); Bilirubin, Total 0.3 mg/dL (0.2-1.2); Calc. Creatinine Clearance 0 mL/min (70-130); Calcium 9.3 mg/dL (7.8-10.44); Carbon Dioxide 24 mmol/L (22-29); Chloride 103 mmol/L (98-107); Estimated GFR-MDRD Greater than 90; Globulin 3.3 g/dL (2.4-3.5); Glucose 183 mg/dL (70-105); Potassium 4.1 mmol/L (3.5-5.1); Protein, Total 7.5 g/dL (6.0-8.3); Sodium 137 mmol/L (136-145)
[2020-01-02 21:57] LABS: Band 1 % (5-11); Eosinophils 2 % (0-10); Lymphocytes 21 % (21-51); MDiff Complete? YES; Monocytes 7 % (0-10); Neutrophil 69 % (42-75); Platelet Morphology Comment Appears Adequate; RBC Morphology Normal
--- NOTE | 2020-01-02 22:15 | CT ---
EXAM: CTA of the chest HISTORY: Chest pain and bilateral lower extremity pain COMPARISON: 12/13/2019 TECHNIQUE: Multiple contiguous axial images were obtained a CTA of the chest with contrast per pulmon rajehs embolism protocol. 3-D oblique MIP reformats and direct coronal reformats were performed. FINDINGS: HEART: Normal in size without focal cardiac abnormality. PULMONARY ARTERIES: Normal in caliber without filling defects to suggest pulmonary emboli. MEDIASTINUM: No hilar or mediastinal lymphadenopathy. LUNGS: No focal infiltrates or masses. PLEURAL SPACE: Trace right pleural effusion with adjacent atelectasis. CHEST WALL SOFT TISSUES: Unremarkable VISUALIZED OSSEOUS STRUCTURES: No acute abnormality. VISUALIZED SUBDIAPHRAGMATIC STRUCTURES: Unremarkable IMPRESSION: No evidence of pulmonary thromboembolism
== END 2020-01-02 22:35 | disposition home or self-care (01) ==
LOC: ERS 18:32
DX: I82.403 Acute embolism and thrombosis of unspecified deep veins of lower extremity, bilateral (principal); D72.829 Elevated white blood cell count, unspecified; E11.9 Type 2 diabetes mellitus without complications; E78.5 Hyperlipidemia, unspecified; E78.00 Pure hypercholesterolemia, unspecified; I10 Essential (primary) hypertension; M06.9 Rheumatoid arthritis, unspecified; G43.909 Migraine, unspecified, not intractable, without status migrainosus; F32.9 Major depressive disorder, single episode, unspecified; F41.9 Anxiety disorder, unspecified; F17.210 Nicotine dependence, cigarettes, uncomplicated; Z79.899 Other long term (current) drug therapy; Z79.891 Long term (current) use of opiate analgesic; Z79.82 Long term (current) use of aspirin; Z79.4 Long term (current) use of insulin; Z79.01 Long term (current) use of anticoagulants; Z79.52 Long term (current) use of systemic steroids
CPT/HCPCS: 71275; 80053; 84484; 84703; 85025; 85379; 93005; Q9967

== ENCOUNTER 2020-01-06 17:10 | Emergency (ER) | payer MEDICARE, MEDICAID ==
[2020-01-06 18:11] LABS: Hemoglobin 15.9 g/dL (12.0-16.0); Mean Corpuscular HGB CONC 33.7 g/dL (32.0-36.0); Mean Corpuscular Hemoglobin 29.4 pg (27.0-31.0); Mean Corpuscular Volume 87.4 fL (78.0-98.0); Mean Platelet Volume 6.6 fL (7.4-10.4); Platelet Count 335 thou/uL (130-400); RBC Distribution Width 12.2 % (11.5-14.5); Red Blood Cell (RBC) Count 5.41 mill/uL (4.20-5.40); White Blood Cell (WBC) Count 16.8 thou/uL (4.8-10.8)
[2020-01-06 18:29] LABS: ALT (SGPT) 30 U/L (8-55); AST (SGOT) 20 U/L (5-34); Albumin 4.6 g/dL (3.5-5.0); Alkaline Phosphatase 93 U/L (40-110); Anion Gap 16 mmol/L (10-20); BUN (Urea Nitrogen) 14 mg/dL (7.0-18.7); Bilirubin, Total 0.4 mg/dL (0.2-1.2); Calc. Creatinine Clearance 0 mL/min (70-130); Calcium 9.4 mg/dL (7.8-10.44); Carbon Dioxide 26 mmol/L (22-29); Chloride 100 mmol/L (98-107); Estimated GFR-MDRD 85; Globulin 3.3 g/dL (2.4-3.5); Glucose 125 mg/dL (70-105); Potassium 4.1 mmol/L (3.5-5.1); Protein, Total 7.9 g/dL (6.0-8.3); Sodium 138 mmol/L (136-145)
[2020-01-06 18:37] LABS: Band 10 % (5-11); Eosinophils 3 % (0-10); Lymphocytes 22 % (21-51); MDiff Complete? YES; Monocytes 5 % (0-10); Neutrophil 44 % (42-75); Platelet Morphology Comment Appears Adequate; Polychromasia SLIGHT = 2-3 cells (100X) (0-2/hpf); Reactive Lymphocytes 16 % (0-10)
[2020-01-06] MEDS ORDERED: Lorazepam 2 MG/ML VIAL ONE (19:21)
--- NOTE | 2020-01-06 19:31 | RAD ---
RADIOGRAPH CHEST 1 VIEW: DATE: 01/06/2020 TIME: 7:19 PM HISTORY: 39-year-old female with chest pain, palpitations, and tachycardia COMPARISON: 07/20/2019 FINDINGS: The right hemidiaphragm is elevated to a greater degree now than before. There is a new finding of donnelly bsegmental atelectasis at the right medial base. The rest of the visualized lung padilla are clear. Cardiac shadow projects inferior to the diaphragm and is therefore difficult to evaluate. No pneumoth orax. IMPRESSION: Elevated right hemidiaphragm
--- NOTE | 2020-01-06 20:12 | CT ---
CTA CHEST WITH CONTRAST: 01/06/20 Axial tomograms obtained following angio protocol with multiplanar reconstruction and 3D postprocessi ng. INDICATIONS: Tachycardia. Palpitations. Comparison made to recent CTA chest 01/02/20 which showed no evidence of pulmonary embolus. Artifact limits evaluation of the distal pulmonary arteries. No evidence of pulmonary embolus to the segmental level. Lungs show no evidence of infiltrate. There is linear stranding in the right lower lobe. Thoracic aor ta is unremarkable with no evidence of dissection or aneurysm. No evidence of adenopathy. Images thro ugh the upper abdomen unremarkable. IMPRESSION: 1. No evidence of proximal pulmonary embolus. 2. No acute lung process. POS: [facility]
[2020-01-06 20:39] LABS: Bacteria/HPF None Seen HPF (None Seen); Bilirubin Negative (Negative); Blood, Urine Negative (Negative); Clarity Clear (Clear); Glucose, Urine (Dipstick) Normal (Negative); Ketone, Urine Negative (Negative); Leukocyte 75 Leu/uL (Negative); Nitrite Negative (Negative); Protein, Urine (Dipstick) Negative (Neg-Trace); Urobilinogen Normal mg/dL (Less than 2)
[2020-01-06 20:41] LABS: Specific Gravity, Urine Greater than 1.060 (1.002-1.036)
[2020-01-06 20:49] LABS: Amphetamine Not Detected (NotDetected); Barbiturates Screen Not Detected (NotDetected); Benzodiazepine Screen Detected (NotDetected); Cocaine Metabolite Screen Not Detected (NotDetected); Medtox Control Line Valid? VALID (VALID); Medtox Reader # READER 4; Methadone Not Detected (NotDetected); Methamphetamine Not Detected (NotDetected); Opiate Screen Not Detected (NotDetected); Oxycodone Screen Not Detected (NotDetected); Phencyclidine (PCP) Not Detected (NotDetected); THC/Cannabinoid Screen Not Detected (NotDetected); Tricyclic Screen Not Detected (NotDetected)
--- NOTE | 2020-01-08 15:35 | EKG ---
Test Reason : Blood Pressure : / mmHG Vent. Rate : 102 BPM Atrial Rate : 102 BPM P-R Int : 114 ms QRS Dur : 072 ms QT Int : 364 ms P-R-T Axes : 063 030 034 degrees QTc Int : 474 ms Sinus tachycardia Left atrial enlargement Borderline ECG Confirmed by MARTHA JAUREGUI, FAWAD Cade ([id number]), order editor JAQUAN LING ([id number]) on 01/08/2020 3:34:56 PM Referred By: Confirmed By:FAWAD THOMAS MD
== END 2020-01-06 21:46 | disposition home or self-care (01) ==
LOC: ERS 17:10
DX: E86.0 Dehydration (principal); R00.2 Palpitations; M32.9 Systemic lupus erythematosus, unspecified; D72.829 Elevated white blood cell count, unspecified; E11.9 Type 2 diabetes mellitus without complications; E78.5 Hyperlipidemia, unspecified; E78.00 Pure hypercholesterolemia, unspecified; I10 Essential (primary) hypertension; M79.7 Fibromyalgia; M06.9 Rheumatoid arthritis, unspecified; F41.9 Anxiety disorder, unspecified; F32.9 Major depressive disorder, single episode, unspecified; F17.210 Nicotine dependence, cigarettes, uncomplicated; Z79.82 Long term (current) use of aspirin; Z79.899 Other long term (current) drug therapy; Z79.4 Long term (current) use of insulin
CPT/HCPCS: 36415; 71045; 71275; 80053; 80306; 81003; 81015; 84443; 84484; 85025; 85379; 87040; 87086; 93005; 96374; J2060

== ENCOUNTER 2020-07-17 21:08 | Inpatient (IN) | payer OTHER, MEDICARE, MEDICAID ==
[2020-07-17] MEDS ORDERED: Fentanyl 100 MCG/2 ML VIAL ONE (21:13)
[2020-07-17] MEDS ORDERED: Ketamine 50 MG/ML (10ML VIAL) ONE (21:15)
[2020-07-17] MEDS ORDERED: Ondansetron PF 4 MG/2 ML Vial ONE (22:02)
[2020-07-17] MEDS ORDERED: Morphine 4 MG/ML VIAL ONE (22:02)
[2020-07-17 22:19] LABS: #Basophils 0.1 thou/uL (0.0-0.2); #Eosinphils 0.1 thou/uL (0.0-0.7); #Lymphocytes 3.5 thou/uL (1.20-3.40); #Monocytes 1.1 thou/uL (0.11-0.59); #Neutrophils 7.2 thou/uL (1.40-6.50); %Basophils 0.9 % (0.0-1.0); %Eosinophils 0.9 % (0.0-10.0); %Lymphocytes 28.9 % (21.0-51.0); %Monocytes 9.1 % (0.0-10.0); %Neutrophils 60.3 % (42.0-75.0); Hemoglobin 14.7 g/dL (12.0-16.0); Mean Corpuscular HGB CONC 32.4 g/dL (32.0-36.0); Mean Corpuscular Hemoglobin 29.1 pg (27.0-31.0); Mean Corpuscular Volume 89.9 fL (78.0-98.0); Mean Platelet Volume 6.9 fL (7.4-10.4); Platelet Count 287 thou/uL (130-400); RBC Distribution Width 13.1 % (11.5-14.5); Red Blood Cell (RBC) Count 5.06 mill/uL (4.20-5.40)
[2020-07-17 22:33] LABS: ALT (SGPT) 18 U/L (8-55); AST (SGOT) 13 U/L (5-34); Albumin 3.7 g/dL (3.5-5.0); Alkaline Phosphatase 73 U/L (40-110); Anion Gap 12 mmol/L (10-20); BUN (Urea Nitrogen) 11 mg/dL (7.0-18.7); Bilirubin, Total 0.4 mg/dL (0.2-1.2); Calc. Creatinine Clearance 0 mL/min (70-130); Calcium 8.7 mg/dL (7.8-10.44); Carbon Dioxide 24 mmol/L (22-29); Chloride 100 mmol/L (98-107); Globulin 2.7 g/dL (2.4-3.5); Glucose 238 mg/dL (70-105); Protein, Total 6.4 g/dL (6.0-8.3); Sodium 132 mmol/L (136-145)
[2020-07-17] MEDS ORDERED: SUMAtriptan Succinate 25 MG TAB PO PRN (22:46)
[2020-07-17] MEDS ORDERED: hydrALAZINE 20 MG/ML VIAL SLOW IVP PRN (22:52)
[2020-07-17] MEDS ORDERED: Ondansetron PF 4 MG/2 ML Vial IVP PRN (22:52)
[2020-07-17] MEDS ORDERED: Dextrose 50% Abboject 50 ML SYRINGE SLOW IVP PRN (22:52)
[2020-07-17] MEDS ORDERED: Dextrose 5% in Water 1,000 ML IV PRN (22:52)
[2020-07-17] MEDS ORDERED: tiZANidine HCl 4 MG TAB PO PRN (22:55)
[2020-07-17] MEDS ORDERED: diphenhydrAMINE 25 MG CAP PO PRN (22:58)
[2020-07-17] MEDS ORDERED: Albuterol Sulfate 2.5 mg/3 ml Neb NEB PRN (23:11)
[2020-07-17] MEDS ORDERED: Sodium Chloride 0.9% 1,000 ML IV SCH (23:15)
[2020-07-17 23:55] VITALS: BMI 31.6
[2020-07-17] MEDS ORDERED: Acetaminophen 500 MG TAB PO SCH (23:59)
[2020-07-17] MEDS ORDERED: traMADol HCl 50 MG TAB PO SCH (23:59)
[2020-07-17] MEDS ORDERED: Acetaminophen/Codeine 30-300mg Tablet PO SCH (23:59)
[2020-07-17] MEDS ORDERED: Acetaminophen 325 MG TAB PO SCH (23:59)
[2020-07-18] MEDS: HumaLOG 300 UNITS/3 ML VIAL SC PRN ×2 (00:09→06:17)
[2020-07-18 01:44] LABS: SARS-CoV-2 NAA Rapid Test Not Detected (NotDetected)
[2020-07-18] MEDS ORDERED: Morphine 4 MG/ML VIAL SLOW IVP PRN (02:08)
[2020-07-18 05:40] LABS: #Basophils 0.2 thou/uL (0.0-0.2); #Eosinphils 0.3 thou/uL (0.0-0.7); #Monocytes 1.5 thou/uL (0.11-0.59); #Neutrophils 9.1 thou/uL (1.40-6.50); %Eosinophils 1.6 % (0.0-10.0); %Lymphocytes 31.4 % (21.0-51.0); %Monocytes 9.4 % (0.0-10.0); %Neutrophils 56.7 % (42.0-75.0); Hemoglobin 15.1 g/dL (12.0-16.0); Mean Corpuscular HGB CONC 31.8 g/dL (32.0-36.0); Mean Corpuscular Hemoglobin 29.1 pg (27.0-31.0); Mean Corpuscular Volume 91.6 fL (78.0-98.0); Mean Platelet Volume 6.8 fL (7.4-10.4); Platelet Count 304 thou/uL (130-400); Red Blood Cell (RBC) Count 5.19 mill/uL (4.20-5.40)
[2020-07-18 05:47] LABS: INR-International Normal Ratio 0.9; Prothrombin Time 12.6 sec (12.0-14.7)
[2020-07-18 05:48] LABS: PTT 26.2 sec (22.9-36.1)
[2020-07-18] MEDS ORDERED: Acetaminophen 325 MG TAB PO SCH (06:00)
[2020-07-18 06:06] LABS: Anion Gap 12 mmol/L (10-20); BUN (Urea Nitrogen) 14 mg/dL (7.0-18.7); Calc. Creatinine Clearance 127 mL/min (70-130); Calcium 9.5 mg/dL (7.8-10.44); Carbon Dioxide 28 mmol/L (22-29); Chloride 101 mmol/L (98-107); Glucose 195 mg/dL (70-105); Magnesium 1.8 mg/dL (1.6-2.6); Phosphorus 3.9 mg/dL (2.3-4.7); Potassium 4.2 mmol/L (3.5-5.1); Sodium 137 mmol/L (136-145)
[2020-07-18] MEDS: HYDROcodone/Acetaminophen 10/325 mg Tablet PO PRN ×2 (06:09→10:26)
[2020-07-18] MEDS ORDERED: Gabapentin 400 MG CAP PO SCH (09:00)
[2020-07-18] MEDS ORDERED: Atorvastatin Calcium 20 MG TAB PO SCH (09:00)
[2020-07-18] MEDS ORDERED: Fluticasone Propionate Nasal Spray 16 gm Bottle NASAL SCH (09:00)
[2020-07-18] MEDS ORDERED: clonazePAM 1 MG TAB PO SCH (09:00)
[2020-07-18] MEDS ORDERED: Famotidine 20 MG TAB PO SCH (09:00)
[2020-07-18] MEDS ORDERED: Venlafaxine HCl XR 150 MG CAP PO SCH (09:00)
[2020-07-18] MEDS ORDERED: Gabapentin 300 MG CAP PO SCH (09:00)
[2020-07-18] MEDS ORDERED: Famotidine/PF 20 mg/2ml Vial SLOW IVP SCH (09:00)
[2020-07-18] MEDS ORDERED: VARENICLINE TARTRATE PO SCH (09:00)
[2020-07-18] MEDS ORDERED: Lidocaine 5% Patch TD SCH (09:00)
[2020-07-18] MEDS ORDERED: Lantus 1000 UNITS/10 ML VIAL SC SCH (09:00)
[2020-07-18 11:27] VITALS: BP 132/81; TEMP 98.6
[2020-07-18] MEDS ORDERED: Transdermal Patch Removal TOP SCH (21:00)
[2020-07-18] MEDS ORDERED: OLANZapine 5 MG TAB PO SCH (21:00)
[2020-07-18] MEDS ORDERED: Prazosin HCl 1 MG CAP PO SCH ×2 (21:00)
== END 2020-07-18 12:51 | disposition home or self-care (01) | DRG 442 ==
LOC: ERS 21:08 → SJJU 22:25
PROVIDERS: ADMIT Specialist; ATTEND Specialist
DX: S36.112A Contusion of liver, initial encounter (principal); I50.32 Chronic diastolic (congestive) heart failure; S82.434A Nondisplaced oblique fracture of shaft of right fibula, initial encounter for closed fracture; Z20.822 Contact with and (suspected) exposure to COVID-19; I11.0 Hypertensive heart disease with heart failure; E11.9 Type 2 diabetes mellitus without complications; E78.5 Hyperlipidemia, unspecified; M06.9 Rheumatoid arthritis, unspecified; G43.909 Migraine, unspecified, not intractable, without status migrainosus; M79.7 Fibromyalgia; Z86.718 Personal history of other venous thrombosis and embolism; Z86.711 Personal history of pulmonary embolism; Z79.01 Long term (current) use of anticoagulants; Z79.82 Long term (current) use of aspirin; Z79.4 Long term (current) use of insulin; Z79.899 Other long term (current) drug therapy; V86.65XA Passenger of 3- or 4- wheeled all-terrain vehicle (ATV) injured in nontraffic accident, initial encounter; Z88.8 Allergy status to other drugs, medicaments and biological substances; Z91.040 Latex allergy status
CPT/HCPCS: 27840; 36415; 36416; 70450; 71045; 71260; 72125; 74177; 80048; 80053; 83735; 84100; 85025; 85610; 85730; 86850; 86900; 86901; 96374; 96375; G0390; J1815; J2270; J2405; J3010; Q9967; U0002; U0005

== ENCOUNTER 2020-07-25 07:17 | Outpatient (CLI) | payer MEDICARE, OTHER ==
[2020-07-25 10:08] LABS: Anion Gap 16 mmol/L (10-20); BUN (Urea Nitrogen) 16 mg/dL (7.0-18.7); Calc. Creatinine Clearance 0 mL/min (70-130); Calcium 10.1 mg/dL (7.8-10.44); Carbon Dioxide 29 mmol/L (22-29); Chloride 100 mmol/L (98-107); Glucose 129 mg/dL (70-105); Potassium 4.4 mmol/L (3.5-5.1); Sodium 141 mmol/L (136-145)
== END 2020-07-25 07:18 | disposition home or self-care (01) ==
LOC: LABBT 07:17
PROVIDERS: ATTEND Orthopaedic Surgery
DX: Z01.818 Encounter for other preprocedural examination (principal); S82.831A Other fracture of upper and lower end of right fibula, initial encounter for closed fracture
CPT/HCPCS: 80048; 93005; 93010

== ENCOUNTER 2020-07-27 07:52 | Day surgery (SDC) | payer MEDICARE, MEDICAID ==
[2020-07-26 10:58] VITALS: BMI 31.3
[2020-07-27] MEDS ORDERED: Fentanyl 100 MCG/2 ML VIAL ONE ×5 (09:23→12:43)
[2020-07-27] MEDS ORDERED: EPINEPHrine 1 MG/ML AMP ONE (09:50)
[2020-07-27] MEDS ORDERED: Midazolam HCl 2 mg/2 ml Vial ONE ×2 (09:50→09:58)
[2020-07-27] MEDS ORDERED: Dexamethasone 20 MG/5 ML VIAL ONE (10:48)
[2020-07-27] MEDS ORDERED: Labetalol HCl 100 MG/20 ML VIAL ONE (10:48)
[2020-07-27] MEDS ORDERED: diphenhydrAMINE 50 MG/ML VIAL ONE (10:48)
[2020-07-27] MEDS ORDERED: PROPOFOL 200 MG/20 ML VIAL ONE (10:48)
[2020-07-27] MEDS ORDERED: Bupivacaine HCl 0.5%/Epinephrine 1:200,000/PF 30 ml Vial ONE (10:48)
[2020-07-27] MEDS ORDERED: Ropivacaine 0.5% HCl/PF (150 MG/30 ML VIAL) ONE (10:48)
[2020-07-27] MEDS ORDERED: Ondansetron PF 4 MG/2 ML Vial ONE (10:48)
[2020-07-27] MEDS ORDERED: Lidocaine 1% PF 5 ML VIAL ONE (10:48)
[2020-07-27] MEDS ORDERED: HYDROcodone/Acetaminophen 5/325 mg Tablet ONE (13:27)
== END 2020-07-27 14:45 | disposition home or self-care (01) ==
LOC: SDC 07:52
PROVIDERS: ATTEND Orthopaedic Surgery
PROC: 0QSJ04Z Reposition Right Fibula with Internal Fixation Device, Open Approach (ICD-10-PCS; principal; 2020-07-27)
PROC: 3E0T3BZ Introduction of Anesthetic Agent into Peripheral Nerves and Plexi, Percutaneous Approach (ICD-10-PCS; 2020-07-27)
PROC: 3E0T3BZ Introduction of Anesthetic Agent into Peripheral Nerves and Plexi, Percutaneous Approach (ICD-10-PCS; 2020-07-27)
DX: S82.831A Other fracture of upper and lower end of right fibula, initial encounter for closed fracture (principal); G89.18 Other acute postprocedural pain; M32.9 Systemic lupus erythematosus, unspecified; E11.9 Type 2 diabetes mellitus without complications; M79.7 Fibromyalgia; M06.9 Rheumatoid arthritis, unspecified; I10 Essential (primary) hypertension; E78.5 Hyperlipidemia, unspecified; F17.210 Nicotine dependence, cigarettes, uncomplicated; Z86.711 Personal history of pulmonary embolism; Z86.718 Personal history of other venous thrombosis and embolism; Z79.01 Long term (current) use of anticoagulants; Z79.4 Long term (current) use of insulin; Z79.52 Long term (current) use of systemic steroids; Z79.82 Long term (current) use of aspirin; Z79.899 Other long term (current) drug therapy; Z88.5 Allergy status to narcotic agent; Z91.040 Latex allergy status; Z91.048 Other nonmedicinal substance allergy status; V86.99XA Unspecified occupant of other special all-terrain or other off-road motor vehicle injured in nontraffic accident, initial encounter
CPT/HCPCS: 27792; 64445; 64447; 73610; 76000; C1713 ×4; J0171; J0690; J1100; J1200; J2250; J2405; J2704; J2795; J3010

== ENCOUNTER 2020-10-28 11:56 | Inpatient (IN) | payer MEDICARE, MEDICAID ==
[2020-10-28 12:27] LABS: Actual Bicarbonate (HCO3v) 24 mEq/L (22-28); Analyzer IN Cardio ER; Base Excess -1.2 mEq/L (-2.0 to +3.0); Calcium, Ionized (venous) 1.05 mmol/L (1.16-1.32); Chloride (VBG) 91 mmol/L (98-106); Hemoglobin (Hb) 16.9 g/dL (11.7-15.5); Potassium (VBG) 4.47 mmol/L (3.70-5.30); pH (venous) 7.38 (7.32-7.43)
[2020-10-28 12:37] LABS: Bacteria/HPF None Seen HPF (None Seen); Bilirubin Negative (Negative); Blood, Urine 3+ (Negative); Clarity Clear (Clear); Glucose, Urine (Dipstick) Greater than 1000 mg/dL (Negative); Ketone, Urine 10 mg/dL (Negative); Leukocyte Negative Leu/uL (Negative); Nitrite Negative (Negative); Protein, Urine (Dipstick) Negative (Neg-Trace); Specific Gravity, Urine 1.033 (1.002-1.036); Squamous Epithelial 0-3 HPF (0-3); Urobilinogen Normal mg/dL (Less than 2); pH, Urine 5.5 (5.0-9.0)
[2020-10-28 12:42] LABS: #Basophils 0.1 thou/uL (0.0-0.2); #Eosinphils 0.1 thou/uL (0.0-0.7); #Lymphocytes 3.6 thou/uL (1.20-3.40); #Monocytes 0.9 thou/uL (0.11-0.59); #Neutrophils 9.2 thou/uL (1.40-6.50); %Basophils 0.7 % (0.0-1.0); %Eosinophils 0.4 % (0.0-10.0); %Lymphocytes 26.3 % (21.0-51.0); %Monocytes 6.2 % (0.0-10.0); %Neutrophils 66.4 % (42.0-75.0); Hemoglobin 16.2 g/dL (12.0-16.0); Mean Corpuscular HGB CONC 32.8 g/dL (32.0-36.0); Mean Corpuscular Hemoglobin 28.6 pg (27.0-31.0); Mean Corpuscular Volume 87.2 fL (78.0-98.0); Mean Platelet Volume 8.1 fL (7.4-10.4); Platelet Count 300 thou/uL (130-400); RBC Distribution Width 12.2 % (11.5-14.5); Red Blood Cell (RBC) Count 5.67 mill/uL (4.20-5.40); White Blood Cell (WBC) Count 13.9 thou/uL (4.8-10.8)
[2020-10-28 13:09] LABS: ALT (SGPT) 12 U/L (8-55); AST (SGOT) 16 U/L (5-34); Albumin 4.1 g/dL (3.5-5.0); Alkaline Phosphatase 117 U/L (40-110); Anion Gap 20 mmol/L (10-20); BUN (Urea Nitrogen) 14 mg/dL (7.0-18.7); Bilirubin, Total 0.9 mg/dL (0.2-1.2); Calc. Creatinine Clearance 0 mL/min (70-130); Calcium 9.4 mg/dL (7.8-10.44); Carbon Dioxide 21 mmol/L (22-29); Chloride 90 mmol/L (98-107); Globulin 3.7 g/dL (2.4-3.5); Magnesium 1.9 mg/dL (1.6-2.6); Potassium 5.3 mmol/L (3.5-5.1); Protein, Total 7.8 g/dL (6.0-8.3); Sodium 126 mmol/L (136-145)
[2020-10-28 13:15] LABS: Glucose 742 mg/dL (70-105)
[2020-10-28] MEDS ORDERED: Insulin Regular 300 UNITS/3 ML VIAL ONE ×2 (14:56→15:29)
[2020-10-28] MEDS ORDERED: INSULIN REGULAR IN 0.9 % NACL 100 UNIT/100 ML BAG ONE ×2 (14:56→16:07)
[2020-10-28] MEDS ORDERED: D5 1/2 NS w/20 mEq KCL 1,000 ML IV PRN ×2 (15:09→16:01)
[2020-10-28] MEDS ORDERED: NS 0.9% w/ 20 MEQ KCL 1,000 ML IV PRN ×4 (15:09→16:01)
[2020-10-28] MEDS ORDERED: Dextrose 5 %-0.45 % NaCl 1,000 ML IV PRN ×2 (15:09→16:01)
[2020-10-28] MEDS ORDERED: Sodium Chloride 0.9% 1,000 ML IV PRN ×8 (15:09→16:01)
[2020-10-28] MEDS ORDERED: Electrolyte Replacement Protocol 1 EACH IVPB ONE (15:09)
[2020-10-28] MEDS ORDERED: HUMULIN R 100 UNITS in Sodium Chloride 0.9% 100 ML IVPB SCH ×2 (15:15→16:15)
[2020-10-28] MEDS ORDERED: Sodium Chloride 0.9% 1,000 ML IV SCH (15:45)
[2020-10-28] MEDS ORDERED: Electrolyte Replacement Protocol 1 EACH IVPB PRN (16:01)
[2020-10-28 16:04] LABS: Glucose 532 mg/dL (70-105); Magnesium 1.7 mg/dL (1.6-2.6)
[2020-10-28 16:16] VITALS: BMI 29.5
[2020-10-28 16:27] LABS: SARS-CoV-2 NAA Rapid Test Not Detected (NotDetected)
[2020-10-28 16:43] LABS: Anion Gap 15 mmol/L (10-20); BUN (Urea Nitrogen) 14 mg/dL (7.0-18.7); Calc. Creatinine Clearance 112 mL/min (70-130); Calcium 8.8 mg/dL (7.8-10.44); Carbon Dioxide 22 mmol/L (22-29); Chloride 99 mmol/L (98-107); Glucose 420 mg/dL (70-105); Phosphorus 2.8 mg/dL (2.3-4.7); Potassium 4.1 mmol/L (3.5-5.1); Sodium 132 mmol/L (136-145)
[2020-10-28] MEDS ORDERED: Acetaminophen 325 MG TAB ONE (18:15)
[2020-10-28] MEDS ORDERED: Lantus 1000 UNITS/10 ML VIAL SC SCH (18:15)
[2020-10-28] MEDS: Acetaminophen 325 MG TAB PO PRN (18:17)
[2020-10-28 19:58] LABS: Hemoglobin A1c 13.6 % (4.0-6.0)
[2020-10-28 20:10] LABS: Anion Gap 15 mmol/L (10-20); BUN (Urea Nitrogen) 12 mg/dL (7.0-18.7); Calc. Creatinine Clearance 136 mL/min (70-130); Calcium 8.3 mg/dL (7.8-10.44); Carbon Dioxide 20 mmol/L (22-29); Chloride 104 mmol/L (98-107); Glucose 126 mg/dL (70-105); Potassium 3.5 mmol/L (3.5-5.1); Sodium 135 mmol/L (136-145)
[2020-10-28] MEDS: Apixaban 5 MG TAB PO SCH (20:59)
[2020-10-29] MEDS ORDERED: Dextrose 50% Abboject 50 ML SYRINGE SLOW IVP PRN (00:16)
[2020-10-29] MEDS ORDERED: Dextrose 5% in Water 1,000 ML IV PRN (00:16)
[2020-10-29 00:34] LABS: Anion Gap 16 mmol/L (10-20); BUN (Urea Nitrogen) 13 mg/dL (7.0-18.7); Calc. Creatinine Clearance 118 mL/min (70-130); Calcium 8.3 mg/dL (7.8-10.44); Carbon Dioxide 21 mmol/L (22-29); Chloride 102 mmol/L (98-107); Glucose 378 mg/dL (70-105); Potassium 3.8 mmol/L (3.5-5.1); Sodium 135 mmol/L (136-145)
[2020-10-29] MEDS: HumaLOG 300 UNITS/3 ML VIAL SC PRN ×6 (01:10→20:19)
[2020-10-29] MEDS: Acetaminophen/Codeine 30-300mg Tablet PO PRN ×3 (02:40→16:18)
[2020-10-29] MEDS ORDERED: Lactated Ringer's 1,000 ML IV SCH (03:15)
[2020-10-29 06:07] LABS: Anion Gap 13 mmol/L (10-20); BUN (Urea Nitrogen) 11 mg/dL (7.0-18.7); Calc. Creatinine Clearance 125 mL/min (70-130); Calcium 8.4 mg/dL (7.8-10.44); Carbon Dioxide 21 mmol/L (22-29); Chloride 104 mmol/L (98-107); Glucose 313 mg/dL (70-105); Potassium 3.9 mmol/L (3.5-5.1); Sodium 134 mmol/L (136-145)
[2020-10-29] MEDS ORDERED: Magnesium 2 GM/50 ML 2 GM in Premix Bag 1 BAG IVPB SCH (06:30)
[2020-10-29 07:12] LABS: ALT (SGPT) 9 U/L (8-55); AST (SGOT) 8 U/L (5-34); Albumin 3.2 g/dL (3.5-5.0); Alkaline Phosphatase 85 U/L (40-110); Bilirubin, Total 0.3 mg/dL (0.2-1.2); Globulin 2.3 g/dL (2.4-3.5); Protein, Total 5.5 g/dL (6.0-8.3)
[2020-10-29] MEDS: Apixaban 5 MG TAB PO SCH ×2 (08:47→20:12)
[2020-10-29] MEDS: Lantus 1000 UNITS/10 ML VIAL SC SCH ×2 (08:48→20:15)
[2020-10-29 08:53] LABS: #Basophils 0.1 thou/uL (0.0-0.2); #Eosinphils 0.1 thou/uL (0.0-0.7); #Lymphocytes 5.8 thou/uL (1.20-3.40); #Monocytes 0.9 thou/uL (0.11-0.59); #Neutrophils 5.8 thou/uL (1.40-6.50); %Basophils 1.1 % (0.0-1.0); %Eosinophils 0.6 % (0.0-10.0); %Lymphocytes 45.6 % (21.0-51.0); %Neutrophils 45.6 % (42.0-75.0); Hemoglobin 14.9 g/dL (12.0-16.0); Mean Corpuscular HGB CONC 33.6 g/dL (32.0-36.0); Mean Corpuscular Hemoglobin 28.6 pg (27.0-31.0); Mean Corpuscular Volume 85.1 fL (78.0-98.0); Mean Platelet Volume 7.4 fL (7.4-10.4); Platelet Count 275 thou/uL (130-400); Red Blood Cell (RBC) Count 5.22 mill/uL (4.20-5.40); White Blood Cell (WBC) Count 12.6 thou/uL (4.8-10.8)
[2020-10-29] MEDS: Acetaminophen 325 MG TAB PO PRN (14:23)
[2020-10-29] MEDS ORDERED: Ipratropium Bromide 0.06% Nasal Inhaler 15ml EA NARE PRN (14:43)
[2020-10-29] MEDS ORDERED: SUMAtriptan Succinate 25 MG TAB PO PRN ×2 (14:43→16:51)
[2020-10-29] MEDS ORDERED: tiZANidine HCl 4 MG TAB PO PRN (15:56)
[2020-10-29] MEDS: Prazosin HCl 1 MG CAP PO SCH (20:11)
[2020-10-29] MEDS: OLANZapine 5 MG TAB PO SCH (20:12)
[2020-10-29] MEDS: Atorvastatin Calcium 40 MG TAB PO SCH (20:14)
[2020-10-29] MEDS: Gabapentin 300 MG CAP PO SCH (20:14)
[2020-10-30] MEDS: HumaLOG 300 UNITS/3 ML VIAL SC PRN ×2 (06:14→12:53)
[2020-10-30 06:42] LABS: #Basophils 0.2 thou/uL (0.0-0.2); #Eosinphils 0.1 thou/uL (0.0-0.7); #Lymphocytes 4.5 thou/uL (1.20-3.40); #Monocytes 0.8 thou/uL (0.11-0.59); #Neutrophils 3.7 thou/uL (1.40-6.50); %Basophils 1.7 % (0.0-1.0); %Eosinophils 1.6 % (0.0-10.0); %Lymphocytes 48.4 % (21.0-51.0); %Monocytes 8.4 % (0.0-10.0); %Neutrophils 39.9 % (42.0-75.0); Hemoglobin 14.6 g/dL (12.0-16.0); Mean Corpuscular Hemoglobin 28.1 pg (27.0-31.0); Mean Corpuscular Volume 85.2 fL (78.0-98.0); Mean Platelet Volume 7.5 fL (7.4-10.4); Platelet Count 264 thou/uL (130-400); Red Blood Cell (RBC) Count 5.21 mill/uL (4.20-5.40); White Blood Cell (WBC) Count 9.4 thou/uL (4.8-10.8)
[2020-10-30 07:04] LABS: ALT (SGPT) 9 U/L (8-55); AST (SGOT) 11 U/L (5-34); Albumin 3.3 g/dL (3.5-5.0); Alkaline Phosphatase 80 U/L (40-110); Anion Gap 12 mmol/L (10-20); BUN (Urea Nitrogen) 7 mg/dL (7.0-18.7); Bilirubin, Total 0.4 mg/dL (0.2-1.2); Calc. Creatinine Clearance 136 mL/min (70-130); Calcium 8.4 mg/dL (7.8-10.44); Carbon Dioxide 24 mmol/L (22-29); Chloride 108 mmol/L (98-107); Globulin 2.3 g/dL (2.4-3.5); Glucose 161 mg/dL (70-105); Potassium 3.2 mmol/L (3.5-5.1); Protein, Total 5.6 g/dL (6.0-8.3); Sodium 141 mmol/L (136-145)
[2020-10-30] MEDS ORDERED: Potassium Chloride 20 MEQ TAB PO SCH (08:00)
[2020-10-30] MEDS: Fluticasone Propionate Nasal Spray 16 gm Bottle NASAL SCH (09:10)
[2020-10-30] MEDS: Aspirin 81 mg Enteric Coated Tablet PO SCH (09:11)
[2020-10-30] MEDS: Gabapentin 300 MG CAP PO SCH ×3 (09:11→21:59)
[2020-10-30] MEDS: Acetaminophen/Codeine 30-300mg Tablet PO PRN ×2 (09:12→22:05)
[2020-10-30] MEDS: Venlafaxine HCl XR 75 MG CAP PO SCH (09:13)
[2020-10-30] MEDS: predniSONE 5 MG TAB PO SCH (09:14)
[2020-10-30] MEDS: Apixaban 5 MG TAB PO SCH ×2 (09:14→21:59)
[2020-10-30] MEDS: Amlodipine 5 MG TAB PO SCH (09:14)
[2020-10-30] MEDS: Lantus 1000 UNITS/10 ML VIAL SC SCH ×2 (09:15→22:00)
[2020-10-30] MEDS: Docusate 100 MG CAP PO SCH (09:23)
[2020-10-30] MEDS: Potassium Chloride 20 MEQ in Premix Bag 1 BAG IVPB SCH ×2 (11:22→14:12)
[2020-10-30] MEDS ORDERED: INSULIN ASPART 12 UNIT SC SCH (12:00)
[2020-10-30] MEDS ORDERED: HumaLOG 300 UNITS/3 ML VIAL SC SCH (12:00)
[2020-10-30] MEDS ORDERED: Non-Formulary Item 1 EACH (Insulin Aspart [Novolog Flexpen] 100 UNIT/ML Insuln.Pen) SC SCH (15:00)
[2020-10-30 15:30] LABS: Anion Gap 14 mmol/L (10-20); BUN (Urea Nitrogen) 12 mg/dL (7.0-18.7); Calc. Creatinine Clearance 118 mL/min (70-130); Calcium 9.2 mg/dL (7.8-10.44); Carbon Dioxide 18 mmol/L (22-29); Chloride 106 mmol/L (98-107); Glucose 354 mg/dL (70-105); Potassium 4.7 mmol/L (3.5-5.1); Sodium 133 mmol/L (136-145)
[2020-10-30] MEDS: metFORMIN 500 MG TAB PO SCH (18:04)
[2020-10-30] MEDS: HumaLOG 300 UNITS/3 ML VIAL SC SCH (18:06)
[2020-10-30] MEDS: Prazosin HCl 1 MG CAP PO SCH (21:59)
[2020-10-30] MEDS: Atorvastatin Calcium 40 MG TAB PO SCH (21:59)
[2020-10-30] MEDS: OLANZapine 5 MG TAB PO SCH (21:59)
[2020-10-31 05:38] LABS: Hemoglobin 14.9 g/dL (12.0-16.0); Mean Corpuscular HGB CONC 33.3 g/dL (32.0-36.0); Mean Corpuscular Hemoglobin 28.6 pg (27.0-31.0); Mean Platelet Volume 7.4 fL (7.4-10.4); Platelet Count 261 thou/uL (130-400); RBC Distribution Width 12.2 % (11.5-14.5); White Blood Cell (WBC) Count 11.3 thou/uL (4.8-10.8)
[2020-10-31 05:56] LABS: ALT (SGPT) 12 U/L (8-55); AST (SGOT) 11 U/L (5-34); Albumin 3.5 g/dL (3.5-5.0); Alkaline Phosphatase 75 U/L (40-110); Anion Gap 13 mmol/L (10-20); BUN (Urea Nitrogen) 10 mg/dL (7.0-18.7); Bilirubin, Total 0.4 mg/dL (0.2-1.2); Calc. Creatinine Clearance 134 mL/min (70-130); Calcium 9.4 mg/dL (7.8-10.44); Carbon Dioxide 23 mmol/L (22-29); Chloride 109 mmol/L (98-107); Globulin 2.5 g/dL (2.4-3.5); Glucose 88 mg/dL (70-105); Potassium 3.6 mmol/L (3.5-5.1); Sodium 141 mmol/L (136-145)
[2020-10-31 06:07] LABS: Band 5 % (5-11); Eosinophils 2 % (0-10); Lymphocytes 51 % (21-51); MDiff Complete? YES; Monocytes 10 % (0-10); Neutrophil 19 % (42-75); Platelet Morphology Comment Appears Adequate; RBC Morphology Normal; Reactive Lymphocytes 13 % (0-10)
[2020-10-31] MEDS: Aspirin 81 mg Enteric Coated Tablet PO SCH (08:42)
[2020-10-31] MEDS: Apixaban 5 MG TAB PO SCH (08:42)
[2020-10-31] MEDS: Docusate 100 MG CAP PO SCH (08:43)
[2020-10-31] MEDS: Gabapentin 300 MG CAP PO SCH (08:43)
[2020-10-31] MEDS: Fluticasone Propionate Nasal Spray 16 gm Bottle NASAL SCH (08:44)
[2020-10-31] MEDS: Amlodipine 5 MG TAB PO SCH (08:44)
[2020-10-31] MEDS: predniSONE 5 MG TAB PO SCH (08:44)
[2020-10-31] MEDS: Venlafaxine HCl XR 75 MG CAP PO SCH (08:44)
[2020-10-31] MEDS: Lantus 1000 UNITS/10 ML VIAL SC SCH (08:45)
[2020-10-31] MEDS: metFORMIN 500 MG TAB PO SCH (08:46)
[2020-10-31] MEDS: HumaLOG 300 UNITS/3 ML VIAL SC SCH ×2 (08:46→12:45)
[2020-10-31] MEDS: Acetaminophen/Codeine 30-300mg Tablet PO PRN (09:11)
[2020-10-31] MEDS: HumaLOG 300 UNITS/3 ML VIAL SC PRN (10:22)
[2020-10-31] MEDS ORDERED: HumaLOG 300 UNITS/3 ML VIAL SC SCH (13:00)
[2020-10-31 15:45] VITALS: BP 127/82; TEMP 98.5
[2020-11-19] MEDS ORDERED: AUTO INJCT IM SCH (09:00)
[2020-11-19] MEDS ORDERED: ERENUMAB AOOE 70 MG/ML IM SCH (09:00)
== END 2020-10-31 16:35 | disposition home or self-care (01) | DRG 638 ==
LOC: ERS 11:56 → ERHOLD 14:21 → SURG B 23:20
PROVIDERS: ADMIT Family Medicine; ATTEND Family Medicine
DX: E11.00 Type 2 diabetes mellitus with hyperosmolarity without nonketotic hyperglycemic-hyperosmolar coma (NKHHC) (principal); N17.9 Acute kidney failure, unspecified; Z20.822 Contact with and (suspected) exposure to COVID-19; E11.40 Type 2 diabetes mellitus with diabetic neuropathy, unspecified; M32.9 Systemic lupus erythematosus, unspecified; E78.5 Hyperlipidemia, unspecified; E78.00 Pure hypercholesterolemia, unspecified; I10 Essential (primary) hypertension; G89.29 Other chronic pain; M79.7 Fibromyalgia; M06.9 Rheumatoid arthritis, unspecified; K21.9 Gastro-esophageal reflux disease without esophagitis; F41.9 Anxiety disorder, unspecified; F32.9 Major depressive disorder, single episode, unspecified; K44.9 Diaphragmatic hernia without obstruction or gangrene; G43.909 Migraine, unspecified, not intractable, without status migrainosus; E87.5 Hyperkalemia; E87.6 Hypokalemia; Z87.891 Personal history of nicotine dependence; Z88.8 Allergy status to other drugs, medicaments and biological substances; Z91.040 Latex allergy status; Z86.718 Personal history of other venous thrombosis and embolism; Z86.711 Personal history of pulmonary embolism; S82.891D Other fracture of right lower leg, subsequent encounter for closed fracture with routine healing
CPT/HCPCS: 36415; 36416; 71045; 80053; 81003; 81015; 82010; 82805; 83036; 83735; 83930; 84100; 84443; 84484; 85025; 93005; 96365; 96366; 96376; J1815; J3475; J3480; J7120; J7512; U0002

== ENCOUNTER 2021-04-10 12:09 | Outpatient (CLI) | payer MEDICARE, MEDICAID | END 2021-04-10 12:10 | disposition home or self-care (01) | LOC: MRI 12:09 | PROVIDERS: ATTEND Orthopaedic Surgery | DX: M25.571 Pain in right ankle and joints of right foot (principal); S93.401A Sprain of unspecified ligament of right ankle, initial encounter; M65.9 Synovitis and tenosynovitis, unspecified ==

== ENCOUNTER 2021-06-09 10:48 | Inpatient (IN) | payer MEDICARE, MEDICAID ==
[2021-06-09] MEDS ORDERED: Fentanyl 100 MCG/2 ML VIAL ONE (11:31)
[2021-06-09] MEDS ORDERED: Acetaminophen 325 MG TAB PO PRN (12:09)
[2021-06-09] MEDS ORDERED: HumaLOG 300 UNITS/3 ML VIAL SC PRN ×2 (12:25)
[2021-06-09] MEDS ORDERED: Dextrose 50% Abboject 50 ML SYRINGE SLOW IVP PRN (12:25)
[2021-06-09] MEDS ORDERED: Dextrose 5% in Water 1,000 ML IV PRN (12:25)
[2021-06-09] MEDS ORDERED: Ampicillin/Sulbactam 3 GM in Sodium Chloride 0.9% 100 ML IVPB SCH ×2 (13:00→18:00)
[2021-06-09 14:51] LABS: Lactic Acid 1.5 mmol/L (0.5-2.2)
[2021-06-09] MEDS ORDERED: Ipratropium Bromide 0.06% Nasal Inhaler 15ml EA NARE PRN (15:17)
[2021-06-09] MEDS ORDERED: Famotidine 20 MG TAB PO PRN (15:17)
[2021-06-09 15:20] VITALS: BMI 34.7
[2021-06-09] MEDS ORDERED: Diclofenac 1% 100 GM GEL TP PRN (15:38)
[2021-06-09] MEDS ORDERED: Ketorolac Tromethamine 30 MG/ML VIAL IVP SCH (16:15)
[2021-06-09] MEDS ORDERED: Acetaminophen/Codeine 30-300mg Tablet PO SCH (18:00)
[2021-06-09] MEDS: Ampicillin/Sulbactam 3 GM in Sodium Chloride 0.9% 100 ML IVPB SCH (21:47)
[2021-06-09] MEDS: OLANZapine 2.5 MG TAB PO SCH (21:50)
[2021-06-09] MEDS: Apixaban 5 MG TAB PO SCH (21:51)
[2021-06-09] MEDS: CeleCOXIB 100 MG CAP PO SCH (21:51)
[2021-06-09] MEDS: clonazePAM 1 MG TAB PO SCH (21:51)
[2021-06-09] MEDS: Docusate 100 MG CAP PO SCH ×2 (21:51→22:03)
[2021-06-09] MEDS: Gabapentin 400 MG CAP PO SCH (21:51)
[2021-06-09] MEDS: Atorvastatin Calcium 10 MG TAB PO SCH (21:52)
[2021-06-09] MEDS: Nitroglycerin 0.4 MG TAB (25 Tab Bottle) SL PRN (21:57)
[2021-06-09] MEDS: TYLENOL WITH CODEINE PO PRN (22:52)
[2021-06-10] MEDS: Ampicillin/Sulbactam 3 GM in Sodium Chloride 0.9% 100 ML IVPB SCH ×4 (03:14→21:52)
[2021-06-10 06:26] LABS: #Basophils 0.1 thou/uL (0.0-0.2); #Lymphocytes 2.3 thou/uL (1.20-3.40); #Neutrophils 13.4 thou/uL (1.40-6.50); %Basophils 0.4 % (0.0-1.0); %Eosinophils 0.1 % (0.0-10.0); %Lymphocytes 13.9 % (21.0-51.0); %Monocytes 5.7 % (0.0-10.0); %Neutrophils 79.9 % (42.0-75.0); Hemoglobin 16.4 g/dL (12.0-16.0); Mean Corpuscular HGB CONC 32.3 g/dL (32.0-36.0); Mean Corpuscular Volume 92.8 fL (78.0-98.0); Mean Platelet Volume 6.6 fL (7.4-10.4); Platelet Count 249 thou/uL (130-400); RBC Distribution Width 13.4 % (11.5-14.5); Red Blood Cell (RBC) Count 5.48 mill/uL (4.20-5.40); White Blood Cell (WBC) Count 16.8 thou/uL (4.8-10.8)
[2021-06-10 06:55] LABS: ALT (SGPT) 34 U/L (8-55); AST (SGOT) 12 U/L (5-34); Albumin 3.6 g/dL (3.5-5.0); Alkaline Phosphatase 71 U/L (40-110); Anion Gap 14 mmol/L (10-20); BUN (Urea Nitrogen) 12 mg/dL (7.0-18.7); Bilirubin, Total 0.5 mg/dL (0.2-1.2); Calc. Creatinine Clearance 152 mL/min (70-130); Calcium 9.1 mg/dL (7.8-10.44); Carbon Dioxide 22 mmol/L (22-29); Chloride 105 mmol/L (98-107); Glucose 95 mg/dL (70-105); Potassium 4.1 mmol/L (3.5-5.1); Protein, Total 6.6 g/dL (6.0-8.3); Sodium 137 mmol/L (136-145)
[2021-06-10] MEDS: Losartan 25 MG TAB PO SCH (08:59)
[2021-06-10] MEDS: Venlafaxine HCl XR 150 MG CAP PO SCH (09:09)
[2021-06-10] MEDS: clonazePAM 1 MG TAB PO SCH ×2 (09:09→21:45)
[2021-06-10] MEDS: Empagliflozin 10 MG TAB PO SCH (09:09)
[2021-06-10] MEDS: Aspirin 81 mg Enteric Coated Tablet PO SCH (09:09)
[2021-06-10] MEDS: Gabapentin 400 MG CAP PO SCH (09:10)
[2021-06-10] MEDS: Insulin Glargine 30 UNITS/0.3 ML VIAL SC SCH (09:11)
[2021-06-10] MEDS: CeleCOXIB 100 MG CAP PO SCH ×2 (09:11→21:46)
[2021-06-10] MEDS: predniSONE 5 MG TAB PO SCH (09:11)
[2021-06-10] MEDS: Apixaban 5 MG TAB PO SCH ×2 (09:12→21:45)
[2021-06-10] MEDS ORDERED: Cyclobenzaprine 10 MG TAB PO PRN (10:35)
[2021-06-10] MEDS: TYLENOL WITH CODEINE PO PRN ×2 (11:01→23:42)
[2021-06-10] MEDS: Cepastat Lozenges 1 LOZ PO PRN ×2 (11:02→21:44)
[2021-06-10] MEDS: Gabapentin 300 MG CAP PO SCH ×2 (16:00→21:44)
[2021-06-10] MEDS: Nitroglycerin 0.4 MG TAB (25 Tab Bottle) SL PRN ×2 (16:01→21:42)
[2021-06-10] MEDS: Chlorhexidine Gluconate 15 ML UDCUP SSP SCH (21:42)
[2021-06-10] MEDS: OLANZapine 2.5 MG TAB PO SCH (21:43)
[2021-06-10] MEDS: Atorvastatin Calcium 10 MG TAB PO SCH (21:45)
[2021-06-11] MEDS: Docusate 100 MG CAP PO SCH ×2 (02:01→20:42)
[2021-06-11] MEDS: Ampicillin/Sulbactam 3 GM in Sodium Chloride 0.9% 100 ML IVPB SCH ×3 (03:00→15:08)
[2021-06-11 07:56] LABS: Band 4 % (5-11); Hemoglobin 15.3 g/dL (12.0-16.0); Lymphocytes 48 % (21-51); MDiff Complete? YES; Mean Corpuscular HGB CONC 32.1 g/dL (32.0-36.0); Mean Corpuscular Hemoglobin 29.8 pg (27.0-31.0); Mean Platelet Volume 6.9 fL (7.4-10.4); Monocytes 6 % (0-10); Neutrophil 40 % (42-75); Platelet Count 270 thou/uL (130-400); Platelet Morphology Comment Appears Adequate; RBC Distribution Width 13.4 % (11.5-14.5); RBC Morphology Normal; Reactive Lymphocytes 2 % (0-10); Red Blood Cell (RBC) Count 5.11 mill/uL (4.20-5.40); White Blood Cell (WBC) Count 14.8 thou/uL (4.8-10.8)
[2021-06-11] MEDS: Venlafaxine HCl XR 150 MG CAP PO SCH (08:47)
[2021-06-11] MEDS: Aspirin 81 mg Enteric Coated Tablet PO SCH (08:48)
[2021-06-11] MEDS: Apixaban 5 MG TAB PO SCH ×2 (08:48→20:42)
[2021-06-11] MEDS: Losartan 25 MG TAB PO SCH (08:48)
[2021-06-11] MEDS: predniSONE 5 MG TAB PO SCH (08:48)
[2021-06-11] MEDS: clonazePAM 1 MG TAB PO SCH ×2 (08:48→20:44)
[2021-06-11] MEDS: Empagliflozin 10 MG TAB PO SCH (08:49)
[2021-06-11] MEDS: Gabapentin 300 MG CAP PO SCH ×3 (08:49→20:42)
[2021-06-11] MEDS: CeleCOXIB 100 MG CAP PO SCH ×2 (08:51→20:43)
[2021-06-11] MEDS: Chlorhexidine Gluconate 15 ML UDCUP SSP SCH ×2 (08:51→20:42)
[2021-06-11] MEDS: Insulin Glargine 30 UNITS/0.3 ML VIAL SC SCH (08:52)
[2021-06-11] MEDS: TYLENOL WITH CODEINE PO PRN ×2 (09:23→20:42)
[2021-06-11 12:28] LABS: SARS-CoV-2 PCR by NAA Not Detected (NotDetected)
[2021-06-11] MEDS: Saccharomyces boulardii 250 MG CAP PO SCH (12:28)
[2021-06-11 13:04] LABS: Amphetamine Not Detected (NotDetected); Barbiturates Screen Not Detected (NotDetected); Benzodiazepine Screen Not Detected (NotDetected); Cocaine Metabolite Screen Not Detected (NotDetected); Methadone Not Detected (NotDetected); Methamphetamine Not Detected (NotDetected); Opiate Screen Detected (NotDetected); Oxycodone Screen Not Detected (NotDetected); Phencyclidine (PCP) Not Detected (NotDetected); THC/Cannabinoid Screen Not Detected (NotDetected); Tricyclic Screen Not Detected (NotDetected)
[2021-06-11] MEDS: Atorvastatin Calcium 10 MG TAB PO SCH (20:43)
[2021-06-11] MEDS: Amoxicillin/Potassium Clav 875 MG TAB PO SCH (20:44)
[2021-06-11] MEDS: OLANZapine 2.5 MG TAB PO SCH (20:44)
[2021-06-11] MEDS: metroNIDAZOLE 500 MG TAB PO SCH (20:44)
[2021-06-11] MEDS: Nitroglycerin 0.4 MG TAB (25 Tab Bottle) SL PRN (20:46)
[2021-06-12 03:54] VITALS: TEMP 98.3
[2021-06-12 06:33] LABS: #Basophils 0.1 thou/uL (0.0-0.2); #Eosinphils 0.2 thou/uL (0.0-0.7); #Lymphocytes 5.7 thou/uL (1.20-3.40); #Neutrophils 4.9 thou/uL (1.40-6.50); %Eosinophils 1.6 % (0.0-10.0); %Lymphocytes 47.9 % (21.0-51.0); %Monocytes 8.7 % (0.0-10.0); %Neutrophils 40.8 % (42.0-75.0); Hemoglobin 15.4 g/dL (12.0-16.0); Mean Corpuscular HGB CONC 32.2 g/dL (32.0-36.0); Mean Corpuscular Hemoglobin 30.2 pg (27.0-31.0); Mean Corpuscular Volume 93.7 fL (78.0-98.0); Mean Platelet Volume 6.5 fL (7.4-10.4); Platelet Count 270 thou/uL (130-400); RBC Distribution Width 13.3 % (11.5-14.5); White Blood Cell (WBC) Count 11.9 thou/uL (4.8-10.8)
[2021-06-12] MEDS: Amoxicillin/Potassium Clav 875 MG TAB PO SCH (07:44)
[2021-06-12] MEDS: Chlorhexidine Gluconate 15 ML UDCUP SSP SCH (07:44)
[2021-06-12] MEDS: Venlafaxine HCl XR 150 MG CAP PO SCH (07:44)
[2021-06-12] MEDS: metroNIDAZOLE 500 MG TAB PO SCH (07:44)
[2021-06-12] MEDS: TYLENOL WITH CODEINE PO PRN (07:45)
[2021-06-12] MEDS: Insulin Glargine 30 UNITS/0.3 ML VIAL SC SCH (07:46)
[2021-06-12] MEDS: Apixaban 5 MG TAB PO SCH (07:46)
[2021-06-12] MEDS: clonazePAM 1 MG TAB PO SCH (07:46)
[2021-06-12] MEDS: CeleCOXIB 100 MG CAP PO SCH (07:46)
[2021-06-12] MEDS: Aspirin 81 mg Enteric Coated Tablet PO SCH (07:46)
[2021-06-12] MEDS: Empagliflozin 10 MG TAB PO SCH (07:46)
[2021-06-12] MEDS: Gabapentin 300 MG CAP PO SCH (07:46)
[2021-06-12] MEDS: predniSONE 5 MG TAB PO SCH (07:47)
[2021-06-12] MEDS: Saccharomyces boulardii 250 MG CAP PO SCH (07:47)
[2021-06-12] MEDS: Losartan 25 MG TAB PO SCH (07:47)
[2021-06-12 08:16] VITALS: BP 136/78
== END 2021-06-12 08:40 | disposition home or self-care (01) | DRG 159 ==
LOC: ERS 10:48 → SURG A 12:04 → OBSVTOIN 12:04
PROVIDERS: ADMIT Family Medicine; ATTEND Family Medicine
DX: K12.2 Cellulitis and abscess of mouth (principal); Z20.822 Contact with and (suspected) exposure to COVID-19; E11.9 Type 2 diabetes mellitus without complications; M32.9 Systemic lupus erythematosus, unspecified; M06.9 Rheumatoid arthritis, unspecified; I10 Essential (primary) hypertension; K05.6 Periodontal disease, unspecified; F17.210 Nicotine dependence, cigarettes, uncomplicated; E78.5 Hyperlipidemia, unspecified; I25.10 Atherosclerotic heart disease of native coronary artery without angina pectoris; G47.33 Obstructive sleep apnea (adult) (pediatric); F32.A Depression, unspecified; F41.9 Anxiety disorder, unspecified; K44.9 Diaphragmatic hernia without obstruction or gangrene; M79.7 Fibromyalgia; R19.7 Diarrhea, unspecified; Z86.718 Personal history of other venous thrombosis and embolism; Z91.040 Latex allergy status; Z91.048 Other nonmedicinal substance allergy status; Z79.82 Long term (current) use of aspirin; Z79.51 Long term (current) use of inhaled steroids; Z79.01 Long term (current) use of anticoagulants; Z79.4 Long term (current) use of insulin; Z79.899 Other long term (current) drug therapy; Z79.52 Long term (current) use of systemic steroids
CPT/HCPCS: 36415; 36416; 80053; 80306; 83605; 84145; 85025; J0295; J1815; J3010; J3370; J3490; J7030; J7512; U0003; U0005

== ENCOUNTER 2021-07-06 12:21 | Outpatient (CLI) | payer MEDICARE, MEDICAID ==
[2021-07-06 13:21] LABS: Hemoglobin 17.5 g/dL (12.0-15.5); Mean Corpuscular HGB CONC 31.9 g/dL (32.0-36.0); Mean Corpuscular Hemoglobin 28.7 pg (27.0-33.0); Mean Platelet Volume 9.5 fl (7.4-10.4); Platelet Count 264 10x3/uL (150-450); RBC Distribution Width 14.9 % (11.5-14.5); White Blood Cell (WBC) Count 12.4 10x3/uL (3.5-10.5)
[2021-07-06 13:31] LABS: MDiff Complete? YES
[2021-07-06 13:43] LABS: Anion Gap 18 mmol/L (10-20); BUN (Urea Nitrogen) 17 mg/dL (7.0-18.7); Calc. Creatinine Clearance 0 mL/min (70-130); Calcium 9.5 mg/dL (7.8-10.44); Carbon Dioxide 26 mmol/L (22-29); Chloride 103 mmol/L (98-107); Glucose 106 mg/dL (70-105); Potassium 3.5 mmol/L (3.5-5.1); Sodium 143 mmol/L (136-145)
[2021-07-06 13:53] LABS: Eosinophils 1 % (0-10); Lymphocytes 34 % (21-51); Monocytes 9 % (0-10); Neutrophil 53 % (42-75); Reactive Lymphocytes 3 % (0-10)
[2021-07-06 13:58] LABS: Platelet Morphology Comment Appears Adequate
[2021-07-06 14:01] LABS: RBC Morphology Normal
[2021-07-06 23:57] LABS: SARS-CoV-2 PCR by NAA Not Detected (NotDetected)
== END 2021-07-06 12:22 | disposition home or self-care (01) ==
LOC: LABBT 12:21
PROVIDERS: ATTEND Specialist
DX: Z01.818 Encounter for other preprocedural examination (principal); D17.1 Benign lipomatous neoplasm of skin and subcutaneous tissue of trunk; Z20.822 Contact with and (suspected) exposure to COVID-19
CPT/HCPCS: 80048; 85025; 93005; U0003; U0005; 93010

== ENCOUNTER 2021-07-11 05:52 | Day surgery (SDC) | payer MEDICARE, MEDICAID ==
[2021-07-10 10:25] VITALS: BMI 34.3
[2021-07-11] MEDS ORDERED: fentaNYL Citrate/PF 100 MCG/2 ML SYRINGE ONE (06:03)
[2021-07-11] MEDS ORDERED: CEFAZOLIN 2 GM VIAL ONE (06:20)
[2021-07-11] MEDS ORDERED: Acetaminophen 500 MG TAB ONE (06:20)
[2021-07-11] MEDS ORDERED: Sodium Chloride 0.9% 100 ML ONE (06:20)
[2021-07-11] MEDS ORDERED: Ketorolac Tromethamine 30 MG/ML VIAL ONE (06:20)
[2021-07-11] MEDS ORDERED: Lidocaine 1% MPF 2 ML VIAL ONE (06:21)
[2021-07-11] MEDS ORDERED: Bupivacaine PF 0.5% 30 ML VIAL ONE (06:41)
[2021-07-11] MEDS ORDERED: Lidocaine 1% w/Epinephrine 1:100K 20 ML VIAL ONE (06:41)
[2021-07-11] MEDS ORDERED: Bacitracin Zinc Ointment 30 gm TUBE ONE (06:41)
[2021-07-11] MEDS ORDERED: Bupivacaine 0.25% 10 ML VIAL ONE (07:32)
[2021-07-11] MEDS ORDERED: Albuterol Sulfate HFA (OR ONLY) ONE (07:41)
[2021-07-11 07:56] LABS: BHCG - Serum Negative (NEGATIVE); Pregs Control Background? CLEAR/WHITE (CLR/WHITE); Pregs Control Bar Appear? YES (CONTROL BAR)
[2021-07-11] MEDS ORDERED: Fentanyl 100 MCG/2 ML VIAL ONE ×2 (09:18→09:41)
== END 2021-07-11 10:51 | disposition home or self-care (01) ==
LOC: SDC 05:52
PROVIDERS: ATTEND Specialist
PROC: 0KB20ZZ Excision of Right Neck Muscle, Open Approach (ICD-10-PCS; principal; 2021-07-11)
PROC: 0KBG0ZZ Excision of Left Trunk Muscle, Open Approach (ICD-10-PCS; 2021-07-11)
DX: D17.0 Benign lipomatous neoplasm of skin and subcutaneous tissue of head, face and neck (principal); D17.1 Benign lipomatous neoplasm of skin and subcutaneous tissue of trunk; M32.9 Systemic lupus erythematosus, unspecified; M79.7 Fibromyalgia; E11.9 Type 2 diabetes mellitus without complications; I10 Essential (primary) hypertension; E78.5 Hyperlipidemia, unspecified; F17.210 Nicotine dependence, cigarettes, uncomplicated; Z79.01 Long term (current) use of anticoagulants; Z79.4 Long term (current) use of insulin; Z79.52 Long term (current) use of systemic steroids; Z79.82 Long term (current) use of aspirin; Z79.899 Other long term (current) drug therapy; Z88.5 Allergy status to narcotic agent; Z88.8 Allergy status to other drugs, medicaments and biological substances; Z91.040 Latex allergy status; Z91.048 Other nonmedicinal substance allergy status
CPT/HCPCS: 36415; 36416; 84703; 88304; J1885; J3010; J3490; S0020

== ENCOUNTER 2021-08-31 11:54 | Outpatient (CLI) | payer MEDICARE, MEDICAID ==
[2021-08-31 13:33] LABS: Hemoglobin 16.8 g/dL (12.0-15.5); Mean Corpuscular HGB CONC 32.4 g/dL (32.0-36.0); Mean Corpuscular Hemoglobin 28.7 pg (27.0-33.0); Mean Corpuscular Volume 88.5 fl (81.6-98.3); Mean Platelet Volume 9.6 fl (7.4-10.4); Platelet Count 272 10x3/uL (150-450); RBC Distribution Width 14.6 % (11.5-14.5); Red Blood Cell (RBC) Count 5.85 10x6/uL (3.90-5.03); White Blood Cell (WBC) Count 13.5 10x3/uL (3.5-10.5)
[2021-08-31 13:47] LABS: Prothrombin Time 10.8 sec (9.5-12.1)
[2021-08-31 14:04] LABS: Anion Gap 15 mmol/L (10-20); BUN (Urea Nitrogen) 13 mg/dL (7.0-18.7); Calc. Creatinine Clearance 0 mL/min (70-130); Calcium 9.4 mg/dL (7.8-10.44); Carbon Dioxide 26 mmol/L (22-29); Chloride 105 mmol/L (98-107); Estimated GFR 74; Glucose 119 mg/dL (70-105); Potassium 4.3 mmol/L (3.5-5.1); Sodium 142 mmol/L (136-145)
[2021-08-31 14:12] LABS: Eosinophils 5 % (0-10); Monocytes 10 % (0-10)
[2021-08-31 14:13] LABS: Lymphocytes 32 % (21-51); Reactive Lymphocytes 6 % (0-10)
[2021-08-31 14:14] LABS: Neutrophil 46 % (42-75)
[2021-08-31 14:15] LABS: MDiff Complete? YES; Platelet Morphology Comment Appears Adequate
[2021-08-31 14:16] LABS: RBC Morphology Normal
== END 2021-08-31 11:55 | disposition home or self-care (01) ==
LOC: LABBT 11:54
PROVIDERS: ATTEND Orthopaedic Surgery
DX: Z01.812 Encounter for preprocedural laboratory examination (principal); T84.84XA Pain due to internal orthopedic prosthetic devices, implants and grafts, initial encounter; Z20.822 Contact with and (suspected) exposure to COVID-19
CPT/HCPCS: 80048; 85025; 85610; 87811

== ENCOUNTER 2021-09-05 08:30 | Day surgery (SDC) | payer MEDICARE, MEDICAID ==
[2021-09-03 12:28] VITALS: BMI 34.7
[2021-09-05] MEDS ORDERED: Ondansetron PF 4 MG/2 ML Vial ONE (09:45)
[2021-09-05] MEDS ORDERED: Ketorolac Tromethamine 30 MG/ML VIAL ONE (09:45)
[2021-09-05] MEDS ORDERED: PROPOFOL 200 MG/20 ML VIAL ONE (09:45)
[2021-09-05] MEDS ORDERED: Lidocaine 1% PF 5 ML VIAL ONE (09:45)
[2021-09-05] MEDS ORDERED: Dexamethasone 20 MG/5 ML VIAL ONE (09:45)
[2021-09-05] MEDS ORDERED: Dextrose 50% Abboject 50 ML SYRINGE ONE (11:21)
[2021-09-05] MEDS ORDERED: Sodium Chloride 0.9% 100 ML ONE (11:51)
[2021-09-05] MEDS ORDERED: CEFAZOLIN 2 GM VIAL ONE (11:51)
[2021-09-05] MEDS ORDERED: fentaNYL Citrate/PF 100 MCG/2 ML SYRINGE ONE ×2 (12:08→12:26)
[2021-09-05] MEDS ORDERED: PROPOFOL 20 ML ONE ×2 (12:33)
[2021-09-05] MEDS ORDERED: Bupivacaine PF 0.5% 30 ML VIAL ONE (12:41)
[2021-09-05] MEDS ORDERED: EPINEPHrine 1 MG/ML AMP ONE (12:41)
[2021-09-05] MEDS ORDERED: Fentanyl 100 MCG/2 ML VIAL ONE ×3 (13:40→14:47)
[2021-09-05] MEDS ORDERED: HYDROcodone/Acetaminophen 5/325 mg Tablet ONE (15:31)
== END 2021-09-05 16:02 | disposition home or self-care (01) ==
LOC: SDC 08:30
PROVIDERS: ATTEND Orthopaedic Surgery
PROC: 0SPF04Z Removal of Internal Fixation Device from Right Ankle Joint, Open Approach (ICD-10-PCS; principal; 2021-09-05)
DX: T84.84XA Pain due to internal orthopedic prosthetic devices, implants and grafts, initial encounter (principal); M32.9 Systemic lupus erythematosus, unspecified; M79.7 Fibromyalgia; M06.9 Rheumatoid arthritis, unspecified; E11.9 Type 2 diabetes mellitus without complications; I10 Essential (primary) hypertension; E78.5 Hyperlipidemia, unspecified; F17.210 Nicotine dependence, cigarettes, uncomplicated; G89.29 Other chronic pain; M25.571 Pain in right ankle and joints of right foot; Z79.01 Long term (current) use of anticoagulants; Z79.4 Long term (current) use of insulin; Z79.52 Long term (current) use of systemic steroids; Z79.82 Long term (current) use of aspirin; Z79.84 Long term (current) use of oral hypoglycemic drugs; Z79.899 Other long term (current) drug therapy; Z88.5 Allergy status to narcotic agent; Z88.8 Allergy status to other drugs, medicaments and biological substances; Z91.040 Latex allergy status; Z91.048 Other nonmedicinal substance allergy status
CPT/HCPCS: 36416; J0171; J0690; J1100; J1885; J2405; J2704; J3010; J3490; J7999; S0020

== ENCOUNTER 2021-11-08 06:16 | Day surgery (SDC) | payer MEDICARE, MEDICAID ==
[2021-11-06 10:05] VITALS: BMI 31.9
[2021-11-08] MEDS ORDERED: fentaNYL Citrate/PF 100 MCG/2 ML SYRINGE ONE (07:19)
[2021-11-08] MEDS ORDERED: Midazolam HCl 2 mg/2 ml Vial ONE (07:19)
[2021-11-08] MEDS ORDERED: Ketamine 50 MG/ML (10ML VIAL) ONE (07:20)
[2021-11-08] MEDS ORDERED: Phenylephrine 10 MG/ML VIAL ONE (07:20)
[2021-11-08] MEDS ORDERED: Propofol 1,000 MG/100 ML VIAL IV ONE ×2 (07:20→10:12)
[2021-11-08] MEDS ORDERED: Lidocaine 1% 50ML VIAL ONE (07:32)
[2021-11-08] MEDS ORDERED: Heparin 10,000 UNITS/ 10 ML VIAL ONE (07:32)
[2021-11-08] MEDS ORDERED: Fentanyl 100 MCG/2 ML VIAL ONE ×2 (11:19→12:03)
[2021-11-08] MEDS ORDERED: Ondansetron PF 4 MG/2 ML Vial ONE (11:26)
== END 2021-11-08 14:08 | disposition home or self-care (01) ==
LOC: SDC 06:16
PROVIDERS: ATTEND Internal Medicine Cardiovascular Disease
PROC: 02583ZZ Destruction of Conduction Mechanism, Percutaneous Approach (ICD-10-PCS; principal; 2021-11-08)
PROC: 02K83ZZ Map Conduction Mechanism, Percutaneous Approach (ICD-10-PCS; 2021-11-08)
PROC: 4A023FZ Measurement of Cardiac Rhythm, Percutaneous Approach (ICD-10-PCS; 2021-11-08)
PROC: 4A0234Z Measurement of Cardiac Electrical Activity, Percutaneous Approach (ICD-10-PCS; 2021-11-08)
DX: I47.1 Supraventricular tachycardia (principal); E11.9 Type 2 diabetes mellitus without complications; I10 Essential (primary) hypertension; E78.5 Hyperlipidemia, unspecified; M06.9 Rheumatoid arthritis, unspecified; F17.210 Nicotine dependence, cigarettes, uncomplicated; Z86.718 Personal history of other venous thrombosis and embolism; Z79.01 Long term (current) use of anticoagulants; Z79.4 Long term (current) use of insulin; Z79.52 Long term (current) use of systemic steroids; Z79.82 Long term (current) use of aspirin; Z79.84 Long term (current) use of oral hypoglycemic drugs; Z79.899 Other long term (current) drug therapy; Z88.5 Allergy status to narcotic agent; Z88.8 Allergy status to other drugs, medicaments and biological substances; Z91.040 Latex allergy status; Z91.048 Other nonmedicinal substance allergy status
CPT/HCPCS: 82962; 93005; 93613; 93621; 93653; C1730; C1732; C1760; C1769 ×2; C1894 ×2; C2630; 36416; J1644; J2250; J2370; J2405; J2704; J3010; J3490

== ENCOUNTER → 2022-02-26 | Day surgery (SDC) | payer MEDICAID ==
[2022-02-25 12:43] VITALS: BMI 32.3
[~2022-02-26] MED LIST changes: +Dexmedetomidine 200 MCG/2 ML VIAL ONE; +FENTANYL 50 MCG/ML 1 ML VIAL ONE; +Fentanyl 100 MCG/2 ML VIAL ONE; +Glycopyrrolate 0.2 MG/ML 5 ML SYRINGE ONE; +Heparin 10,000 UNITS/ 10 ML VIAL ONE; -Iopamidol-370 76% 500 ML 1 ML ONE; +Lidocaine 1% (PF) 30 ML VIAL ONE; +Midazolam HCl 2 mg/2 ml Vial ONE; +Ondansetron HCl/PF 4 MG/2 ML Vial IVP PRN; +Promethazine HCl 25 MG/ML VIAL IM PRN; +Protamine Sulfate 50 MG/5 ML VIAL ONE
== END | disposition home or self-care (01) ==
LOC: SDC 06:06
PROVIDERS: ATTEND Internal Medicine Cardiovascular Disease
PROC: 02K83ZZ Map Conduction Mechanism, Percutaneous Approach (ICD-10-PCS; principal; 2022-02-26)
PROC: 4A0234Z Measurement of Cardiac Electrical Activity, Percutaneous Approach (ICD-10-PCS; principal; 2022-02-26)
PROC: 4A023FZ Measurement of Cardiac Rhythm, Percutaneous Approach (ICD-10-PCS; principal; 2022-02-26)
PROC: 02583ZZ Destruction of Conduction Mechanism, Percutaneous Approach (ICD-10-PCS; principal; 2022-02-26)
DX: I47.1 Supraventricular tachycardia (principal); E11.9 Type 2 diabetes mellitus without complications; I10 Essential (primary) hypertension; E78.5 Hyperlipidemia, unspecified; M06.9 Rheumatoid arthritis, unspecified; F17.210 Nicotine dependence, cigarettes, uncomplicated; Z86.718 Personal history of other venous thrombosis and embolism; Z79.01 Long term (current) use of anticoagulants; Z79.4 Long term (current) use of insulin; Z79.52 Long term (current) use of systemic steroids; Z79.82 Long term (current) use of aspirin; Z79.84 Long term (current) use of oral hypoglycemic drugs; Z79.899 Other long term (current) drug therapy; Z88.5 Allergy status to narcotic agent; Z88.8 Allergy status to other drugs, medicaments and biological substances; Z91.040 Latex allergy status; Z91.048 Other nonmedicinal substance allergy status
CPT/HCPCS: 36416; 93005; 93621; 93653; C1730; C1731; C1732; C1760; C1769; C1894; C2630; J1644; J2001; J2250; J2720; J3010

== ENCOUNTER 2022-08-29 09:27 | Outpatient (CLI) | payer MEDICARE, OTHER, MEDICAID | END 2022-08-29 09:28 | disposition home or self-care (01) | LOC: RAD 09:27 | PROVIDERS: ATTEND Internal Medicine Critical Care Medicine | DX: R06.00 Dyspnea, unspecified (principal); J98.11 Atelectasis | CPT/HCPCS: 71046 ==

== ENCOUNTER 2023-08-13 13:56 | Outpatient (CLI) | payer OTHER | END 2023-08-13 13:57 | disposition home or self-care (01) | LOC: RAD 13:56 | PROVIDERS: ATTEND Internal Medicine Critical Care Medicine | DX: R06.00 Dyspnea, unspecified (principal) | CPT/HCPCS: 71046 ==

== ENCOUNTER 2023-12-25 14:37 | Observation (INO) | payer OTHER ==
[2023-12-25 14:55] LABS: #Eosinophils Less than 0.03 10x3/uL (0.0-0.7); %Lymphocytes 36.8 % (21.0-51.0); %Monocytes 8.3 % (0.0-10.0); %Neutrophils 52.8 % (42.0-75.0); Hemoglobin 14.8 g/dL (12.0-16.0); Mean Corpuscular HGB CONC 33.6 g/dL (32.0-36.0); Mean Corpuscular Hemoglobin 29.2 pg (27.0-31.0); Mean Corpuscular Volume 86.8 fL (78.0-98.0); Mean Platelet Volume 9.9 fL (7.4-10.4); Platelet Count 223 10x3/uL (130-400); RBC Distribution Width 13.7 % (11.5-14.5); Red Blood Cell (RBC) Count 5.07 mill/uL (4.20-5.40)
[2023-12-25 15:17] LABS: Troponin I Less than 0.010 ng/mL (< 0.028)
[2023-12-25 15:31] LABS: ALT (SGPT) 32 U/L (8-55); AST (SGOT) 33 U/L (5-34); Albumin 3.3 g/dL (3.5-5.0); Alkaline Phosphatase 66 U/L (40-110); Anion Gap 13 mmol/L (10-20); BUN (Urea Nitrogen) 12 mg/dL (7.0-18.7); Bilirubin, Total 0.3 mg/dL (0.2-1.2); Calc. Creatinine Clearance 0 mL/min (70-130); Calcium 8.7 mg/dL (7.8-10.44); Carbon Dioxide 22 mmol/L (22-29); Chloride 109 mmol/L (98-107); Estimated GFR 66; Globulin 3.1 g/dL (2.4-3.5); Glucose 104 mg/dL (70-105); Potassium 3.4 mmol/L (3.5-5.1); Protein, Total 6.4 g/dL (6.0-8.3); Sodium 141 mmol/L (136-145)
[2023-12-25] MEDS ORDERED: Ondansetron PF 4 MG/2 ML Vial ONE (17:57)
[2023-12-25] MEDS ORDERED: Morphine 2 MG/ML VIAL ONE (17:57)
[2023-12-25] MEDS ORDERED: Acetaminophen 325 MG TAB PO PRN (18:11)
[2023-12-25] MEDS ORDERED: Acetaminophen 650 MG Suppository PR PRN (18:11)
[2023-12-25] MEDS ORDERED: Nitroglycerin 0.4 MG TAB (25 Tab Bottle) SL PRN (18:11)
[2023-12-25] MEDS ORDERED: Cyclobenzaprine 10 MG TAB PO PRN (19:02)
[2023-12-25] MEDS ORDERED: Non-Formulary Item 1 EACH (Diclofenac Sodium [Diclofenac Sodium 1% Gel] 100 GM Tube) TOP PRN (19:02)
[2023-12-25] MEDS ORDERED: Dextrose 50% Abboject 50 ML SYRINGE SLOW IVP PRN (19:06)
[2023-12-25] MEDS ORDERED: Glucagon 1 MG/ML KIT IM PRN (19:06)
[2023-12-25] MEDS ORDERED: Dextrose 5% in Water 1,000 ML IV PRN (19:06)
[2023-12-25] MEDS ORDERED: Insulin Lispro 100 UNIT/ML 10 ML VIAL SC PRN ×2 (19:06)
[2023-12-25] MEDS ORDERED: Electrolyte Replacement Protocol FS SCH (20:15)
[2023-12-25 20:38] VITALS: BMI 30.2
[2023-12-25] MEDS: Atorvastatin Calcium 10 MG TAB PO SCH (20:40)
[2023-12-25] MEDS: clonazePAM 1 MG TAB PO SCH (20:40)
[2023-12-25] MEDS: Famotidine 20 MG TAB PO SCH (20:40)
[2023-12-25] MEDS: Docusate 100 MG CAP PO SCH (20:40)
[2023-12-25] MEDS: Gabapentin 400 MG CAP PO SCH (20:41)
[2023-12-25 20:51] LABS: Hematocrit 51.7 % (36.0-47.0); Hemoglobin 16.2 g/dL (12.0-16.0); Platelet Count 198 10x3/uL (130-400)
[2023-12-25] MEDS ORDERED: Apixaban 5 MG TAB PO SCH (21:00)
[2023-12-25] MEDS: Enoxaparin 80 MG (0.8 mL) SYRINGE SC SCH (21:04)
[2023-12-25 21:14] LABS: Magnesium 2.1 mg/dL (1.6-2.6)
[2023-12-25] MEDS: Nitroglycerin 2% Ointment 1 INCH/1 GM Packet TOP SCH (21:22)
[2023-12-25 21:29] LABS: Troponin I Less than 0.010 ng/mL (< 0.028)
[2023-12-25] MEDS: HYDROcodone/Acetaminophen 10/325 mg Tablet PO PRN (21:33)
[2023-12-25] MEDS ORDERED: Diclofenac 1% 50 GM TOPICAL GEL TP PRN (21:42)
[2023-12-25] MEDS: Potassium Chloride 20 MEQ TAB PO SCH (22:02)
[2023-12-26 00:34] LABS: Troponin I Less than 0.010 ng/mL (< 0.028)
[2023-12-26] MEDS: Zolpidem Tartrate 5 MG TAB PO SCH (01:19)
[2023-12-26 04:12] LABS: #Basophils 0.09 10x3/uL (0.0-0.2); %Basophils 1.1 % (0.0-1.0); %Eosinophils 3.1 % (0.0-10.0); %Lymphocytes 45.2 % (21.0-51.0); %Monocytes 8.4 % (0.0-10.0); Hematocrit 42.6 % (36.0-47.0); Hemoglobin 13.7 g/dL (12.0-16.0); Mean Corpuscular HGB CONC 32.2 g/dL (32.0-36.0); Mean Corpuscular Hemoglobin 28.3 pg (27.0-31.0); Mean Platelet Volume 10.1 fL (7.4-10.4); Platelet Count 193 10x3/uL (130-400); RBC Distribution Width 13.6 % (11.5-14.5); Red Blood Cell (RBC) Count 4.84 mill/uL (4.20-5.40)
[2023-12-26 04:23] LABS: Anion Gap 10 mmol/L (10-20); BUN (Urea Nitrogen) 12 mg/dL (7.0-18.7); Calc. Creatinine Clearance 81 mL/min (70-130); Calcium 8.1 mg/dL (7.8-10.44); Carbon Dioxide 27 mmol/L (22-29); Cardiac Risk 2.5 (Less than 4.5); Chloride 109 mmol/L (98-107); Cholesterol 111 mg/dl (< 200 Desired); Estimated GFR 58; Glucose 191 mg/dL (70-105); HDL Cholesterol 44 mg/dL (>60 Neg Risk); LDL Cholesterol, Calculated 28 mg/dL; Potassium 3.8 mmol/L (3.5-5.1); Sodium 142 mmol/L (136-145); Triglycerides 197 mg/dL (Less than 150)
[2023-12-26] MEDS ORDERED: Ondansetron ODT 8 MG TAB SL PRN (08:24)
[2023-12-26] MEDS: Aspirin 81 mg Enteric Coated Tablet PO SCH (08:53)
[2023-12-26] MEDS: Empagliflozin 10 MG TAB PO SCH (08:55)
[2023-12-26] MEDS: Venlafaxine HCl XR 150 MG CAP PO SCH (08:55)
[2023-12-26] MEDS: Insulin Lispro 100 UNIT/ML 10 ML VIAL SC SCH (08:58)
[2023-12-26] MEDS ORDERED: Non-Formulary Item 1 EACH (Insulin Glargine,Hum.Rec.Anlog [Toujeo Solostar] 300 UNIT/ML I SQ SCH (09:00)
[2023-12-26] MEDS ORDERED: Venlafaxine HCl XR 150 MG CAP PO SCH (09:00)
[2023-12-26] MEDS: Morphine 2 MG/ML VIAL SLOW IVP SCH (10:16)
[2023-12-26] MEDS ORDERED: Electrolyte Replacement Protocol FS PRN (10:30)
[2023-12-26] MEDS: Furosemide 20 MG (2 mL) VIAL SLOW IVP SCH (10:46)
[2023-12-26] MEDS: SUMAtriptan Succinate 50 MG TAB PO PRN (12:03)
[2023-12-26] MEDS ORDERED: HYDROcodone/Acetaminophen 10/325 mg Tablet PO PRN (12:56)
[2023-12-26] MEDS: Acetaminophen 500 MG TAB PO SCH (13:49)
[2023-12-26 16:24] VITALS: BP 116/73; TEMP 98.3
[2023-12-26] MEDS ORDERED: Insulin Lispro 100 UNIT/ML 10 ML VIAL SC SCH (17:00)
[2023-12-26] MEDS ORDERED: Apixaban 5 MG TAB PO SCH (21:00)
[2023-12-26] MEDS ORDERED: Zolpidem Tartrate 5 MG TAB PO SCH (21:00)
[2023-12-26] MEDS ORDERED: Apixaban 2.5 MG TAB PO SCH (21:00)
== END 2023-12-26 17:45 | disposition left against medical advice (07) ==
LOC: ERS 14:37 → 2SE 18:22
PROVIDERS: ADMIT Hospitalist; ATTEND Internal Medicine
DX: R07.9 Chest pain, unspecified (principal); I25.10 Atherosclerotic heart disease of native coronary artery without angina pectoris; I21.09 ST elevation (STEMI) myocardial infarction involving other coronary artery of anterior wall; I27.20 Pulmonary hypertension, unspecified; R60.0 Localized edema; E11.9 Type 2 diabetes mellitus without complications; M32.9 Systemic lupus erythematosus, unspecified; M79.7 Fibromyalgia; I11.0 Hypertensive heart disease with heart failure; I50.30 Unspecified diastolic (congestive) heart failure; F43.10 Post-traumatic stress disorder, unspecified; M06.9 Rheumatoid arthritis, unspecified; M54.9 Dorsalgia, unspecified; Z79.899 Other long term (current) drug therapy; Z79.4 Long term (current) use of insulin; Z98.890 Other specified postprocedural states; F17.210 Nicotine dependence, cigarettes, uncomplicated; Z79.01 Long term (current) use of anticoagulants; Z86.711 Personal history of pulmonary embolism; Z86.718 Personal history of other venous thrombosis and embolism; Z88.5 Allergy status to narcotic agent; Z91.040 Latex allergy status; Z88.8 Allergy status to other drugs, medicaments and biological substances
CPT/HCPCS: 71045; 80048; 80053; 80061; 82962 ×2; 83735; 83880; 84484 ×3; 85014; 85018; 85025 ×2; 85049; 93005; 93971; 96372; 96374; 96375; 96376; 99285; G0378 ×3; J1650; J1815; J2272 ×2; J2405; 36415; 36416

== ENCOUNTER 2024-02-03 10:14 | Outpatient (CLI) | payer OTHER | END 2024-02-03 10:15 | disposition home or self-care (01) | LOC: RAD 10:14 | PROVIDERS: ATTEND Internal Medicine Critical Care Medicine | DX: R06.00 Dyspnea, unspecified (principal); I27.20 Pulmonary hypertension, unspecified; I51.7 Cardiomegaly | CPT/HCPCS: 71046 ==